=== PATIENT | female | born 1935 | race Caucasian/White ===

== ENCOUNTER 2018-09-08 16:28 | Emergency (ER) | payer MEDICARE, OTHER ==
--- OUTSIDE RECORDS SUMMARY | 2018-09-08 17:00 | XMS REPORT | Continuity of Care Document ---
:1935 External Reference #:[id number] Author Name Nan Morgan Care Team Providers Name Role Phone Felix Husain MD Primary Care Physician Unavailable Payers Type Date Identification Numbers Payment Provider Subscriber Policy Number: [id number] Medicare Sayra Ceja PayID: [id number] [address] [place] [address] Policy Number: [id number] [facility] Sayra Ceja Group Number: [id number] [address] PayID: [id number] [place] [address] Advance Directives Description No Information Available Problems Description No Information Family History Date Family Member(s) Problem(s) Comments Father due to Heart arrhythmia () Father Heart Disease Mother No Current Problems Mother due to Natural Causes () Mother Dementia Siblings 2 2 brothers, both younger One brother has sleep apnea Social History Type Date Description Comments Sex Unknown Marital Status 03/2014 Lives With Alone Occupation Retired Tobacco Use Start: Unknown Former smoker in college, quit 50 years ago ETOH Use Denies alcohol use Tobacco Use Start: Unknown Patient has never smoked Smoking Status Reviewed: 09/06/18 Patient has never smoked Exercise Exercises regularly small trampoline Type/Frequency daily Allergies, Adverse Reactions, Alerts Date Description Reaction Status Severity Comments 08/24/2010 Sulfa severe exhaustion, vomiting Active 01/25/2015 Dilaudid Active 07/06/2017 Hay Fever Active Medications Medication Date Status Form Strength Qnty SIG Indications Ordering Provider Oxygen 04/08/2018 Active Misc 1units please use R09.02 Sheila o2 at MD Chirag 2l/min at night I27.20 B12 Active 1000mg Im twice q Unknown month Melatonin Active Capsules 10mg 1 PO qd Unknown Ipratropium Active Solution 0.03% spray 2 Unknown Ipava sprays in each nostril two times daily as needed Calcium Active Tablets 333mg 1 by mouth Unknown every day Potassium Active Capsules 200mg 3 caps by Unknown mouth qd Probiotic Daily Active Capsules 1 by mouth Unknown every day Co Q10 03/26/2013 - Hx Capsules 100mg 1 po qd Other 01/24/2015 Ordering Provider Vitamin D 08/24/2010 - Hx Capsules 1000Unit 100 po qd Keith Thomas 01/24/2015 baltazar Rider M.D. Vitamin C 08/24/2010 - Hx Tablets 500mg 1 po qd Keith Thomas 09/04/2018 Price Adkins Forteo - Hx Solution 750mcg/3M use ad Unknown 03/21/2012 L directed Ambien - Hx Tablets 5mg 30t 1 po tablet Unknown 06/05/2017 abs at bedtime prn Calcium,MG, Zinc - Hx 500mg one po twice Unknown 07/29/2018 daily Multiple Vitamin - Hx Tablets 1 po qd Unknown 09/04/2018 Vitamin B Complex - Hx Capsules 1 po qd Unknown 03/26/2013 Vitamin K2 - Hx Capsules 100mcg 1 by mouth Unknown 09/04/2018 every day Cholestyramine - Hx Packet 4gm /4 packet Unknown 03/12/2016 once daily Extra Strength - Hx Capsules 500mg 2 tab po qd Unknown Acetaminophen 01/18/2016 as needed Eye Bright - Hx 1 daily Unknown 07/29/2018 Erythromycin - Hx Ointment 5mg/GM apply to Unknown 06/05/2017 bilateral eyelids every night at bedtime Artificial Tears - Hx Solution 0.1-0.3% 1 drop in Unknown 03/18/2018 left eye every 2 hours as needed Vitamin D - Hx daily Unknown 07/29/2018 Vitamin B1 - Hx 100mg daily Unknown 09/04/2018 Cranactin - Hx Tablets 400mg 1 by mouth Unknown 09/04/2018 every day Milk Thistle - Hx Capsules 600mg 1 cap by Unknown 09/04/2018 mouth every day Immunizations Description No Information Available Vital Signs Date Vital Result Comment 09/06/2018 10:07am Height 56 inches 4'8" Weight 88.00 lb Heart Rate 84 /min BP Systolic 106 mmHg BP Diastolic 60 mmHg Respiratory Rate 18 /min Body Temperature 98.8 F O2 % BldC Oximetry 98 % BMI (Body Mass Index) 19.7 kg/m2 07/30/2018 1:29pm Height 56 inches 4'8" Weight 86.00 lb Heart Rate 68 /min BP Systolic Sitting 132 mmHg BP Diastolic Sitting 90 mmHg Respiratory Rate 14 /min O2 % BldC Oximetry 96 % BMI (Body Mass Index) 19.3 kg/m2 Neck Circumference in inches 13.25 03/19/2018 1:24pm Height 56 inches 4'8" Weight 88.00 lb w/shoes Heart Rate 58 /min BP Systolic 126 mmHg lue sm cuff BP Diastolic 70 mmHg lue sm cuff BMI (Body Mass Index) 19.7 kg/m2 Ejection Fraction 60-65% echo 07/03/2017 07/06/2017 2:10pm Height 56 inches 4'8" Weight 94.50 lb w/ shoes Heart Rate 64 /min reg BP Systolic Sitting 120 mmHg Lue, reg cuff BP Diastolic Sitting 70 mmHg Lue, reg cuff Respiratory Rate 16 /min BMI (Body Mass Index) 21.2 kg/m2 Ejection Fraction 60-65% as of 07/04/17 echo 03/12/2017 2:06pm Height 56 inches 4'8" Weight 91.00 lb w/o shoes Heart Rate 58 /min BP Systolic Sitting 142 mmHg LA small adult cuff BP Diastolic Sitting 78 mmHg LA small adult cuff BMI (Body Mass Index) 20.4 kg/m2 Ejection Fraction 60% - 65% echo 02/15/15 01/19/2016 3:34pm Height 56 inches 4'8" Weight 94.25 lb with shoes Heart Rate 78 /min BP Systolic Sitting 124 mmHg LA, regular BP Diastolic Sitting 78 mmHg LA, regular BMI (Body Mass Index) 21.1 kg/m2 Ejection Fraction 60-65% echo 02/15/15 01/25/2015 1:51pm Height 56 inches 4'8" Weight 90.75 lb w/shoes Heart Rate 60 /min BP Systolic Sitting 130 mmHg LA sm cuff BP Diastolic Sitting 80 mmHg LA sm cuff Respiratory Rate 14 /min BMI (Body Mass Index) 20.3 kg/m2 03/26/2013 11:37am Weight 95.00 lb Heart Rate 52 /min BP Systolic 120 mmHg BP Diastolic 62 mmHg Respiratory Rate 16 /min 03/21/2012 11:13am Weight 96.00 lb Heart Rate 76 /min BP Systolic 120 mmHg BP Diastolic 80 mmHg Respiratory Rate 16 /min 04/13/2011 2:58pm Weight 96.00 lb Heart Rate 76 /min BP Systolic Sitting 100 mmHg BP Diastolic Sitting 60 mmHg 08/24/2010 9:42am Weight 100.25 lb Heart Rate 58 /min BP Systolic Sitting 128 mmHg BP Diastolic Sitting 64 mmHg BP Systolic Lying Down 100 mmHg BP Diastolic Lying Down 70 mmHg Results Test Date Facility Test Result H/L Range Note Laboratory test 05/14/2018 [facility] TSH 5.26 mcIU/mL N 0.34- 5.[address] ([place] [address] Stim [facility]) [phone] CBC W/Auto Diff 05/14/2018 [facility] White Blood 6.2 10^3/uL N 3.5-10.[address] [place] [address] [phone] Red Blood Count 3.72 10^6/uL Low 4.00-5.40 Hemoglobin 11.8 g/dL Low 12.0-16.0 Hematocrit 35 % N 35-47 Mean Corpuscular Volume 94 fL N 80-97 Mean Corpuscular Hemoglobin 32 pg High 27-31 Mean Corpuscular HGB Conc 34 g/dL N 31-36 Red Cell Distribution Width 14 % N 10.5-15 Platelet Count 178 10^3/uL N 150-450 Mean Platelet Volume 9.1 um3 N 7.4-10.4 Abs Neutrophils 3.6 10^3/uL N 1.5-7.7 Abs Lymphocytes 1.6 10^3/uL N 1.0-4.8 Abs Monocytes 0.7 10^3/uL N 0-0.8 Abs Eosinophils 0.2 10^3/uL N 0-0.6 Abs Basophils 0 10^3/uL N 0-0.2 Abs Nucleated RBC 0 10^3/uL Granulocyte % 58.4 % N 38-83 Lymphocyte % 25.4 % N 25-47 Monocyte % 11.9 % High 0-7 Eosinophil % 3.6 % N 0-6 Basophil % 0.7 % N 0-2 Nucleated Red Blood Cells % 0.1 CMP Panel 05/14/2018 [facility] Sodium 135 mmol/L N 135-[address] [place] [address] [phone] Potassium 4.4 mmol/L N 3.5-5.0 Chloride 97 mmol/L Low 101-111 Co2 Carbon Dioxide 28 mmol/L N 22-32 Anion Gap 10 mmol/L N 2-11 Calcium 9.9 mg/dL N 8.6-10.3 Albumin 3.8 g/dL N 3.2-5.2 Total Bilirubin 0.60 mg/dL N 0.2-1.0 Glucose 87 mg/dL N 70-100 Blood Urea Nitrogen 13 mg/dL N 6-24 Creatinine 0.89 mg/dL N 0.51-0.95 BUN/Creatinine Ratio 14.6 N 8-20 Total Protein 6.2 g/dL Low 6.4-8.9 Globulin 2.4 g/dL N 2-4 Albumin/Globulin Ratio 1.6 N 1-3 Alkaline Phosphatase 55 U/L N 34-104 Alt 11 U/L N 7-52 Ast 18 U/L N 13-39 Egfr Non- 60.4 >60 Egfr 73.1 >60 1 Laboratory test 05/14/2018 [facility] Erythrocyte Sed 15 mm/Hr N 0-[address] [place] [address] [phone] Laboratory test 06/02/2017 [facility] TSH (Thyroid 6.44 High 0.34-5.6 [address] Stim Horm) mcIU/mL 0 [place] [address] [phone] Comp Metabolic 06/02/2017 [facility] Sodium 131 Low 133-[address] mmol/[place] [address] [phone] Potassium 4.6 mmol/L N 3.5-5.0 Chloride 100 mmol/L Low 101-111 Co2 Carbon Dioxide 30 mmol/L N 22-32 Anion Gap 1 mmol/L Low 2-11 Glucose 86 mg/dL N 70-100 Blood Urea Nitrogen 10 mg/dL N 6-24 Creatinine 0.78 mg/dL N 0.51-0.95 BUN/Creatinine Ratio 12.8 N 8-20 Calcium 9.5 mg/dL N 8.6-10.3 Total Protein 6.4 g/dL N 6.4-8.9 Albumin 3.8 g/dL N 3.2-5.2 Globulin 2.6 g/dL N 2-4 Albumin/Globulin Ratio 1.5 N 1-3 Total Bilirubin 0.60 mg/dL N 0.2-1.0 Alkaline Phosphatase 72 U/L N 34-104 Alt 11 U/L N 7-52 Ast 18 U/L N 13-39 Egfr Non- 70.5 N >60 Egfr 90.7 N >60 3 CBC Auto Diff 06/02/2017 [facility] White Blood 6.4 10^3/uL N 3.5-10.[address] [place] [address] [phone] Red Blood Count 3.73 10^6/uL Low 4.0-5.4 Hemoglobin 11.7 g/dL Low 12.0-16.0 Hematocrit 34 % Low 35-47 Mean Corpuscular Volume 92 fL N 80-97 Mean Corpuscular Hemoglobin 31 pg N 27-31 Mean Corpuscular HGB Conc 34 g/dL N 31-36 Red Cell Distribution Width 15 % N 10.5-15 Platelet Count 222 10^3/uL N 150-450 Mean Platelet Volume 8 um3 N 7.4-10.4 Abs Neutrophils 3.9 10^3/uL N 1.5-7.7 Abs Lymphocytes 1.5 10^3/uL N 1.0-4.8 Abs Monocytes 0.6 10^3/uL N 0-0.8 Abs Eosinophils 0.3 10^3/uL N 0-0.6 Abs Basophils 0.1 10^3/uL N 0-0.2 Abs Nucleated RBC 0 10^3/uL N Granulocyte % 60.9 % N 38-83 Lymphocyte % 23.7 % Low 25-47 Monocyte % 9.3 % High 1-9 Eosinophil % 5.1 % N 0-6 Basophil % 1.0 % N 0-2 Nucleated Red Blood Cells % 0.1 N 1 Because ethnic data is not always readily available, this report includes an eGFR for both -Americans and non- Americans. The National Kidney Disease Education Program (NKDEP) does not endorse the use of the MDRD equation for patients that are not between the ages of 18 and 70, are , have extremes of body size, muscle mass, or nutritional status, or are non- or non-. According to the National Kidney Foundation, irrespective of diagnosis, the stage of the disease is based on the level of kidney function: Stage Description GFR(mL/min/1.73 m(2)) 1 Kidney damage with normal or decreased GFR 90 2 Kidney damage with mild decrease in GFR 60-89 3 Moderate decrease in GFR 30-59 4 Severe decrease in GFR 15-29 5 Kidney failure <15 (or dialysis) 2 Copy Result to: CINDA ZAPATA ([id number]) 3 Because ethnic data is not always readily available, this report includes an eGFR for both -Americans and non- Americans. The National Kidney Disease Education Program (NKDEP) does not endorse the use of the MDRD equation for patients that are not between the ages of 18 and 70, are , have extremes of body size, muscle mass, or nutritional status, or are non- or non-. According to the National Kidney Foundation, irrespective of diagnosis, the stage of the disease is based on the level of kidney function: Stage Description GFR(mL/min/1.73 m(2)) 1 Kidney damage with normal or decreased GFR 90 2 Kidney damage with mild decrease in GFR 60-89 3 Moderate decrease in GFR 30-59 4 Severe decrease in GFR 15-29 5 Kidney failure <15 (or dialysis) Procedures Date Code Description Status 04/25/2018 54459 Holter Monitor Review (24 hr)dr tijerina & maricel only Completed 04/22/2018 89880 ECG Monitor/Recording W/Visual Superimposition Scanning Completed 03/19/2018 18506 EKG Tracing & Interpretation Completed 07/06/2017 18646 EKG Tracing & Interpretation Completed 07/03/2017 63932 ECHO Transthoracic, Real-Time 2D With Doppler And Color Completed Flow 05/01/2017 37645 Holter Monitor Review (24 hr)dr review & interp only Completed 04/30/2017 98108 ECG Monitor/Recording W/Visual Superimposition Scanning Completed 03/12/2017 65953 EKG Tracing & Interpretation Completed 09/04/2016 80991 Pulmonary Function><Bronchodil Completed 01/19/2016 84133 EKG Tracing & Interpretation Completed 03/12/2015 49205 Holter Monitor Review (24 hr)dr review & interp only Completed 03/12/2015 81347 ECG Monitor/Recording W/Visual Superimposition Scanning Completed 03/08/2015 96373 ECG Monitor/Recording W/Visual Superimposition Scanning Completed 03/08/2015 86119 Holter Monitor Review (24 hr)dr review & interp only Completed 02/15/2015 79425 ECHO Transthoracic, Real-Time 2D With Doppler And Color Completed Flow 01/25/2015 97887 EKG Tracing & Interpretation Completed 01/22/2014 38921 Repair Hernia Inguinal > 5Yrs, Reducible Completed 03/26/2013 22362 EKG Tracing & Interpretation Completed 03/21/2012 40972 EKG Tracing & Interpretation Completed 01/15/2012 64866 ECHO Transthoracic, Real-Time 2D With Doppler And Color Completed Flow 04/13/2011 39199 EKG Tracing & Interpretation Completed 02/02/2011 33966 ECHO Transthoracic, Real-Time 2D With Doppler And Color Completed Flow 10/18/2010 75098 Treadmill Interp/Report Only Completed 10/18/2010 16541 Stress Test Supervsn W/Out I/R Completed 08/24/2010 31594 EKG Tracing & Interpretation Completed 06/08/2010 12444 ECHO Transthorasic Realtime 2D W Doppler & Color Flow Hosp Completed Encounters Type Date Location Provider Dx Diagnosis Office Visit 07/30/2018 [facility] Sheila Beard, J98.4 Other disorders 2:30p [facility] Scudding Inspector M41.9 Scoliosis, unspecified R09.02 Hypoxemia Office Visit 03/19/2018 1:40p [facility] Keith Thomas I49.5 Sick sinus Price Adkins syndrome I34.0 Nonrheumatic mitral (valve) insufficiency I87.2 Venous insufficiency (chronic) (peripheral) 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, thoracic region I49.3 Ventricular premature depolarization I27.20 Pulmonary hypertension, unspecified G47.9 Sleep disorder, unspecified Office Visit 07/06/2017 2:20p [facility] Keith Thomas I49.5 Sick sinus Price Adkins syndrome I34.0 Nonrheumatic mitral (valve) insufficiency I87.2 Venous insufficiency (chronic) (peripheral) R94.31 Abnormal electrocardiogram [ECG] [EKG] Office Visit 03/12/2017 1:40p [place] Keith Thomas M41.34 Thoracogenic Cardiology Price Adkins scoliosis, thoracic region I49.5 Sick sinus syndrome I34.0 Nonrheumatic mitral (valve) insufficiency E03.9 Hypothyroidism, unspecified Office Visit 01/19/2016 3:20p [place] [facility]41.[facility] Price Adkins scoliosis, thoracic region I27.0 Primary pulmonary hypertension I27.81 Cor pulmonale (chronic) Office Visit 01/25/2015 1:40p [facility] Keith Thomas 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 786.50 Pain Chest Unspec 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 Office Visit 03/26/2013 11:20a [facility] Keith Thomas 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 Office Visit 03/21/2012 11:00a [facility] Keith Thomas 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 424.0 Mitral Valve Disorder 737.30 Scoliosis & Kyphoscoliosis Idiopathic Office Visit 04/13/2011 3:00p [facility] Keith Thomas 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 Insert one per rectum today.Start MiraLAX todayPush fluidsPlease call us if you have any problems!M41.9 Scoliosis, unspecifiedComments:Buy a box of Dulcolax suppositories. Insert one per rectum today.Start MiraLAX todayPush fluidsPlease call us if you have any problems!
--- OUTSIDE RECORDS SUMMARY | 2018-09-08 17:00 | XMS REPORT | Continuity of Care Document ---
:1935 External Reference #:[id number] Author Name Hali Ruiz O.D. Address [address] [place] [address] Care Team Providers Name Role Phone Felix Husain M.D. Primary Care Physician Unavailable Payers Type Date Identification Numbers Payment Provider Subscriber Effective: 1998 Policy Number: [id number] Medicare - NGS Sayra Ceja PayID: [id number] [address] [place] [address] Policy Number: [id number] [employer] Ppo/Pos/Epo/Nap Sayra Ceja Group Number: [id number] [address] PayID: [id number] [place] [address] Advance Directives Description No Information Available Problems Date Description Provider Status Onset: Herpes simplex Active Onset: Constipation Active Onset: Postural scoliosis Active Onset: H/O: hay fever Active Onset: Osteoporosis Active Onset: Yersiniosis Active Onset: 07/26/2015 Epiphora due to insufficient drainage Hali Ruiz Active O.DPaul Onset: 07/26/2015 Presence of intraocular lens Bridgette Kenney O.Mike Onset: 12/20/2015 Angular blepharoconjunctivitis Bridgette Kenney O.DPaul Onset: 06/18/2017 Vitreous degeneration Bridgette Kenney O.Mike Onset: 06/18/2017 Tear film insufficiency Hali J. Stockwin, Active O.D. 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 Vitamin C / Active Capsules 500mg 2 tab by Unknown 0000 mouth every day Vitamin K2 / Active Capsules 100mcg Unknown 0000 Atrovent HFA / Active Aerosol 17mcg/Act as Needed Unknown 0000 B1 Natural / Active Tablets 250mg Unknown 0000 Calcium / Active Tablets 300-300mg Unknown Magnesium 750 0000 Tobradex 11/06/ Hx Ointment 0.3-0.1% 3.500g apply to Hali Fregoso 2017 - m all lids , 06/16/ at bedtime O.D. 2017 for 2 weeks Erythromycin 10/04/ Hx Ointment 5mg/GM 3.5uni Apply to Hali Fregoso 2016 - ts affected , 06/16/ lids 3-4x O.D. 2016 d Erythromycin 08/16/ Hx Ointment 5mg/GM 1Tube apply thin Hali Fregoso 2015 - strip to , 06/16/ all four O.D. 2016 eyelid margins x every night for 3 weeks Erythromycin 02/09/ Hx Ointment 5mg/GM 1Tubes apply thin Hali Fregoso 2015 - strip to , 08/15/ all four O.D. 2016 eyelid margins every night at bedtime x 2 weeks Tobradex 12/19/ Hx Ointment 0.3-0.1% 3.500g apply to H10.523 Hali Fregoso 2016 - m all lids , 08/15/ at bedtime O.D. 2016 for 2 weeks Refresh Optive 12/15/ Hx Solution 0.5-1-0.5% 1 drop Hali Bautista 2016 - both eyes Stockwin, Sensitive 06/16/ 4-5 times O.D. 2017 day Refresh Tears 07/25/ Hx Solution 0.5% as needed Hali Fregoso 2014 - Joseph, 12/18/ O.D. 2016 Lid Scrubs 07/25/ Hx once a day Hali Fregoso 2014 - Joseph, 06/16/ O.D. 2017 Warm Compresses 07/25/ Hx as needed Hali Fregoso 2014 - Joseph, 06/16/ O.D. 2016 Cholestyramine / Hx Packet 4gm Crepet, 0000 - Briana Stark.DPaul 2015 Zolpidem 00/ Hx Tablets 5mg Crepet, Tartrate - Briana M.DPaul 2015 Cyanocobalamin / Hx Solution 1000mcg/ML Crepet, 0000 - Briana Stark.Mike 2017 Vitamin D 00/00/ Hx Capsules 2000Unit Unknown - 2017 Calcium 600 /00/ Hx Tablets 600mg Unknown 0000 - 2017 Multi Vitamin 00/00/ Hx Tablets Unknown Daily - 2017 Valacyclovir HCL 00/ Hx Tablets 500mg Unknown 0000 - 2015 Zaditor 00/ Hx Solution 0.025% 1 drop Hali Fregoso 0000 - both eyes Joseph, 06/16/ daily O.D. 2017 Potassium & 00/00/ Hx Capsules 250-250mg Unknown Magnesium 0000 - Aspartat 2017 Eye-Vites 00/00/ Hx Tablets Unknown 0000 - 2017 Immunizations Description No Information Available Vital Signs Description No Information Available Results Description No Information Available Procedures Date Code Description Status 06/18/2017 68290 Est Patient Comprehensive Exam Completed 08/16/2016 53642 Determination Of Refractive State Completed 08/16/2016 43450 Est Patient Comprehensive Exam Completed 12/20/2015 99335 Est Patient Intermediate Exam Completed 07/26/2015 64757 Determination Of Refractive State Completed 07/26/2015 36222 Est Patient Comprehensive Exam Completed 09/18/2013 55620 Determination Of Refractive State Completed 09/18/2013 73231 Est Patient Comprehensive Exam Completed 09/18/2013 201 Refit - No Change In Fit Completed 08/21/2012 34702 Extracapsular Cataract Extraction W/Intraocular Lens Completed 08/13/2012 12034 Ophthalmic Biometry Completed 05/28/2012 46539 Est Patient Comprehensive Exam Completed 03/22/2012 201 Refit - No Change In Fit Completed 05/25/2011 22049 Est Patient Comprehensive Exam Completed 05/03/2011 55041 Est Patient Intermediate Exam Completed 12/23/2010 87613 Scanning Computerized Opthalmic Diagnostic Posterior Seg Completed Retina 12/23/2010 73973 Est Patient Comprehensive Exam Completed 12/23/2010 201 Refit - No Change In Fit Completed 07/15/2010 42556 Est Patient Intermediate Exam Completed 12/29/2009 94792 Determination Of Refractive State Completed 12/17/2009 58672 Est Patient Intermediate Exam Completed 06/30/2009 201 Refit - No Change In Fit Completed 06/30/2009 12058 Est Patient Comprehensive Exam Completed 04/09/2009 83123 Est Patient Intermediate Exam Completed 05/08/2008 67056 Determination Of Refractive State Completed 05/08/2008 06484 Est Patient Intermediate Exam Completed 05/08/2008 201 Refit - No Change In Fit Completed 02/17/2008 35080 Est Patient Intermediate Exam Completed 01/30/2008 81047 Est Patient Comprehensive Exam Completed 03/18/2007 201 Refit - No Change In Fit Completed 03/06/2007 33499 Est Patient Comprehensive Exam Completed 12/29/2005 34880 Est Patient Intermediate Exam Completed 09/07/2005 203 Refit Soft Toric/Monovision Completed 08/16/2005 02566 Extracapsular Cataract Extraction W/Intraocular Lens Completed 08/08/2005 48146 Unlisted Procedure, Ophthalmological Completed 08/08/2005 41202 Ophthalmic Biometry Completed 07/25/2005 35208 Cancelled Appointment Completed 07/25/2005 48991 Est Patient Comprehensive Exam Completed 03/28/2005 22240 Determination Of Refractive State Completed 03/28/2005 05327 Est Patient Comprehensive Exam Completed 05/12/2004 18953 Determination Of Refractive State Completed 05/12/2004 18225 Est Patient Comprehensive Exam Completed Encounters Type Date Location Provider Dx Diagnosis Office Visit 07/03/2014 Hali Salinas 373.00 Blepharitis Unspec 2:10p bessie BRAUN O.D. Office Visit 04/17/2013 Hali Salinas 375.15 Dry Eyes (Sicca 10:20a bessie BRAUN O.D. Syndrome) Office Visit 11/25/2012 Hali Salinas 375.20 Epiphora 3:10p bessie BRAUN O.D. Unspecified as To Cause Office Visit 11/11/2012 Hali Salinas 375.20 Epiphora 3:40p bessie BRAUN O.D. Unspecified as To Cause 375.15 Dry Eyes (Sicca Syndrome) Office Visit 08/13/2012 11:00a Jose A Salinas 366.16 Senile Nuclear bessie BRAUN M.D. Sclerosis / Cataract 366.16 Senile Nuclear Sclerosis / Cataract Office Visit 07/18/2010 7:15p Jose A Rosa 370.20 Superficial MD Theron, bessie Olvera O.D. 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 Primary Office Visit 12/29/2009 1:30p Jose A Fregoso 364.01 Iridocyclshaquille Crump MD, bessie Ruiz O.D. Primary Office Visit 12/20/2009 10:20a Jose A Fregoso 364.01 Iridocyclshaquille Crump MD, bessie Ruiz O.D. Primary Office Visit 09/02/2008 3:45p Jose A Waterman 930.0 Corneal Foreign Body MD Theron, bessie Etienne M.D. Office Visit 02/24/2008 3:00p Jose A Fregoso 370.00 Corneal Ulcer MD Theron, bessie Ruiz O.D. (Infectious) Office Visit 02/20/2008 3:00p Jose A Fregoso 371.00 Corneal Opacity MD Theron, bessie Ruiz O.D. Unspec Office Visit 08/08/2005 11:00a Jose A Fregoso V72.83 Examination MD Theron, bessie Crump M.D. Preoperative Other Spec 366.16 Senile Nuclear Sclerosis / Cataract Office Visit 06/14/2005 2:30p Jose A Etienne, 366.14 Posterior MD Theron, bessie Melgoza. Subcapsular Polar Cataract Senile Plan of Treatment 08/19/2018 - Hali Ruiz O.D.H04.123 Dry eye syndrome of bilateral lacrimal glandsComments:Smoking can increase the risk of developing or worsening any eye related disease, as well as affect your overall health. If you are a smoker, we strongly recommend that you quit.If you are not a smoker, we strongly recommend that you do not start. CONTINUE THERATEARS BOTH EYES NEEDEDFollow up:1 Year Follow Up You can expect to have your eyes dilated at your next visit. If Dr. Ruiz orders any additional testing, it may require extra time. We recommend that you bring sunglasses, as dilation drops often make you light sensitive until they wear off. We always recommend you bring someone to drive you home if you are uncomfortable driving with your eyes dilated. If you have any questions before your next visit, feel free to call our office at .[phone] Vitreous degeneration, bilateralComments: You have a Posterior Vitreous Detachment. Please read the pamphlet that was given to you. If you have any changes in your floaters or flashing lights, please contact this office.Z96.1 Presence of intraocular lensComments:The artificial lens implants in both eyes appear to be stable at this time.
[2018-09-08 18:14] LABS: ABS Basophils 0 10^3/ul (0-0.2); ABS Eosinophils 0.1 10^3/ul (0-0.6); ABS Lymphocytes 1.2 10^3/ul (1.0-4.8); ABS Monocytes 0.8 10^3/ul (0-0.8); ABS Neutrophils 5.3 10^3/ul (1.5-7.7); ABS Nucleated RBC 0 10^3/ul; Eosinophil % 1.4 %; Hematocrit 37 % (35-47); Hemoglobin 12.6 g/dl (12.0-16.0); Lymphocyte % 16.5 %; Mean Corpuscular HGB Conc 34 g/dl (31-36); Mean Corpuscular Hemoglobin 31 pg (27-31); Mean Corpuscular Volume 92 fL (80-97); Mean Platelet Volume 8.5 fL (7.4-10.4); Nucleated Red Blood Cells % 0; Platelet Count 195 10^3/ul (150-450); Red Blood Count 4.08 10^6/ul (4.00-5.40); Red Cell Distribution Width 14 % (10.5-15); White Blood Count 7.5 10^3/ul (3.5-10.8)
[2018-09-08 18:30] LABS: EGFR Non-African American 56.7 (>60)
[2018-09-08] MEDS ORDERED: Iodixanol* (CONTRAST) 320 MG/ML 100 ML SDV IV ONE (19:33)
[2018-09-08] MEDS ORDERED: Sodium Phosphate ADULT ENEMA* 118 ml bottle PR ONE (23:00)
--- NOTE | 2018-09-09 00:28 | ED ---
Abdominal Pain/Female - HPI Summary HPI Summary: Patient complains of no bowel movements this week. Patient saw GI 3 days ago and states she has tried everything but an enema. Patient taking MiraLAX and has tried Dulcolax suppositories 2 three days ago with no change in BM. Denies abdominal pain, fever, urine symptoms, vaginal symptoms, N/V/D, cough, sore throat, CP, SOB. PCP advised to come to the ED for imaging. Patient states she feels the urge to go but has minimal production. Medical history is pernicious anemia, scoliosis. Abdominal surgical history is hernia. - History of Current Complaint Chief Complaint: EDAbdPain Stated Complaint: CONSTIPATION X4WKS/NO BM FOR 9DAYS Time Seen by Provider: 09/08/18 17:39 Hx Obtained From: Patient, Family/Booster Station Operator Onset/Duration: Gradual Onset Timing: Constant Severity Currently: None Pain Intensity: 0 Pain Scale Used: 0-10 Numeric Radiates: No Associated Signs and Symptoms: Positive: Constipation Allergies/Adverse Reactions: Allergies Allergy/AdvReac Type Severity Reaction Status Date / Time hydrocodone Allergy Nausea Verified 09/08/18 18:05 hydromorphone [From Dilaudid] Allergy Nausea Verified 09/08/18 18:05 sulfabenzamide Allergy Vomiting Verified 09/08/18 18:05 sulfamethoxazole Allergy Hallucinati Verified 09/08/18 18:05 [From Septra] ons trimethoprim [From Septra] Allergy Hallucinati Verified 09/08/18 18:05 ons ENVIRONMENTAL/.SEASONAL Allergy SNEEZING, Uncoded 09/08/18 18:05 HAYFEVER RUNNY NOSE, CONGESTION SULFA Allergy Vomiting Uncoded 09/08/18 18:05 Home Medications: Home Medications Cannabidiol (Cbd) Extract 1 applic TOPICAL DAILY PRN 09/08/18 [History Confirmed 09/09/18] Melatonin 5 mg Tablet 10 mg PO DAILY 09/08/18 [History Confirmed 09/09/18] PMH/Surg Hx/FS Hx/Imm Hx Endocrine/Hematology History: Reports: Hx Anemia - PERNICIOUS ANEMIA Denies: Hx Anticoagulant Therapy, Hx Diabetes, Hx Thyroid Disease Cardiovascular History: Reports: 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 MABRY Respiratory History: Denies: Hx Asthma, Hx Chronic Obstructive Pulmonary Disease (COPD) GI History: Reports: Other GI Disorders - DIFFICULTY SWALLOWING SOME PILLS Denies: Hx Ulcer History: Denies: Hx Renal Disease Comment Only: Other Problems/Disorders - HX OF UTI'S, NONE NOW Musculoskeletal History: Reports: Hx Osteoporosis, Other Musculoskeletal History - RIGHT SIDE DIFF WITH RANGE OF MOTION Denies: Hx Rheumatoid Arthritis Sensory History: Reports: Hx Cataracts, Hx Contacts or Glasses - GLASSES Denies: Hx Hearing Aid Opthamlomology History: Reports: Hx Cataracts, Hx Contacts or Glasses - GLASSES Neurological History: Reports: 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 D&C. HERNIA . Tonsillectomy Hx Anesthesia Reactions: No Infectious Disease History: No Infectious Disease History: Reports: Hx Clostridium Difficile Denies: Hx Hepatitis, Hx Human Immunodeficiency Virus (HIV), History Other Infectious Disease, Traveled Outside the in Last 30 Days - Family History Known Family History: Positive: Unknown - Social History Alcohol Use: None Alcohol Amount: wine 3 times per week Substance Use Type: Reports: None Smoking Status (MU): Never Smoked Tobacco Have You Smoked in the Last Year: No Review of Systems Constitutional: Negative Eyes: Negative ENT: Negative Cardiovascular: Negative Respiratory: Negative Positive: Other Genitourinary: Negative Musculoskeletal: Negative Skin: Negative Neurological: Negative Psychological: Normal All Other Systems Reviewed And Are Negative: Yes Physical Exam Triage Information Reviewed: Yes Vital Signs On Initial Exam: Initial Vitals Temp Pulse Resp BP Pulse Ox 98.5 F 70 14 116/69 95 09/08/18 16:39 09/08/18 16:39 09/08/18 16:39 09/08/18 16:39 09/08/18 16:39 Vital Signs Reviewed: Yes Appearance: Positive: Well-Appearing Skin: Positive: Warm Head/Face: Positive: Normal Head/Face Inspection Eyes: Positive: Normal Neck: Positive: Supple Respiratory/Lung Sounds: Positive: Clear to Auscultation Cardiovascular: Positive: Normal Abdomen Description: Positive: Nontender Musculoskeletal: Positive: Normal Neurological: Positive: Normal Psychiatric: Positive: Normal AVPU Assessment: Alert - Jt Coma Scale Best Eye Response: 4 - Spontaneous Best Motor Response: 6 - Obeys Commands Best Verbal Response: 5 - Oriented Coma Scale Total: 15 Diagnostics - Vital Signs Vital Signs Temp Pulse Resp BP Pulse Ox 09/09/18 00:16 89 22 138/77 89 18 00:10 16 135/78 09/09/18 00:08 6 09/08/18 23:00 78 17 92 09/08/18 22:45 84 24 124/75 93 09/08/18 22:19 83 29 96 09/08/18 22:16 76 21 125/76 93 09/08/18 22:00 75 16 96 09/08/18 21:47 16 144/87 09/08/18 21:16 22 111/60 09/08/18 21:00 19 09/08/18 20:45 20 132/80 09/08/18 20:16 21 139/88 09/08/18 20:00 23 09/08/18 19:15 72 21 117/63 93 09/08/18 19:00 69 29 94 09/08/18 18:46 67 26 111/66 94 09/08/18 18:16 69 18 131/82 93 09/08/18 18:00 72 18 95 09/08/18 17:46 66 14 138/76 96 09/08/18 17:45 60 14 96 09/08/18 16:39 98.5 F 70 14 116/69 95 - Laboratory Lab Results: Lab Results 09/08/18 09/08/18 Range/Units 18:00 18:00 WBC 7.5 (3.5-10.8) 10^3/ul RBC 4.08 (4.00-5.40) 10^6/ul Hgb 12.6 (12.0-16.0) g/dl Hct 37 (35-47) % MCV 92 (80-97) fL MCH 31 (27-31) pg MCHC 34 (31-36) g/dl RDW 14 (10.5-15) % Plt Count 195 (150-450) 10^3/ul MPV 8.5 (7.4-10.4) fL Neut % (Auto) 70.6 % Lymph % (Auto) 16.5 % [place] % (Auto) 10.9 % Eos % (Auto) 1.4 % Baso % (Auto) 0.6 % Absolute Neuts (auto) 5.3 (1.5-7.7) 10^3/ul Absolute Lymphs (auto) 1.2 (1.0-4.8) 10^3/ul Absolute Monos (auto) 0.8 (0-0.8) 10^3/ul Absolute Eos (auto) 0.1 (0-0.6) 10^3/ul Absolute Basos (auto) 0 (0-0.2) 10^3/ul Absolute Nucleated RBC 0 10^3/ul Nucleated RBC % 0 Sodium 129 L (135-145) mmol/L Potassium 4.4 (3.5-5.0) mmol/L Chloride 93 L (101-111) mmol/L Carbon Dioxide 30 (22-32) mmol/L Anion Gap 6 (2-11) mmol/L BUN 14 (6-24) mg/dL Creatinine 0.94 (0.51-0.95) mg/dL Est GFR ( Amer) 68.6 (>60) Est GFR (Non-Af Amer) 56.7 (>60) BUN/Creatinine Ratio 14.9 (8-20) Glucose 94 (70-100) mg/dL Calcium 9.7 (8.6-10.3) mg/dL Total Bilirubin 0.80 (0.2-1.0) mg/dL AST 17 (13-39) U/L ALT 13 (7-52) U/L Alkaline Phosphatase 55 (34-104) U/L C-Reactive Protein 1.31 (<8.01) mg/L Total Protein 6.4 (6.4-8.9) g/dL Albumin 3.8 (3.2-5.2) g/dL Globulin 2.6 (2-4) g/dL Albumin/Globulin Ratio 1.5 (1-3) Lipase < 10 L (11.0-82.0) U/L Result Diagrams: 09/08/18 18:00 09/08/18 18:00 Lab Statement: Any lab studies that have been ordered have been reviewed, and results considered in the medical decision making process. Abdominal Pain Fem Course/Dx - Course Course Of Treatment: Patient complains of no bowel movements this week. Patient saw GI 3 days ago and states she has tried everything but an enema. Patient taking MiraLAX and has tried Dulcolax suppositories 2 three days ago with no change in BM. Denies abdominal pain, fever, urine symptoms, vaginal symptoms, N/V/D, cough, sore throat, CP, SOB. PCP advised to come to the ED for imaging. Patient states she feels the urge to go but has minimal production. Medical history is pernicious anemia, scoliosis. Abdominal surgical history is hernia. Physical exam unremarkable. Vital signs within normal limits and stable. Labs unremarkable. X-ray positive for constipation. CT abdomen and pelvis positive for constipation and possible stercoral colitis secondary to constipation. Patient given Fleet Enema with large amount of stool production. Patient discharged home and advised to follow-up with primary care for management of constipation. Patient and daughter understand and appropriate plan. Patient states she feels much better after enema. - Diagnoses Provider Diagnoses: Constipation Discharge - Sign-Out/Discharge Documenting (check all that apply): Patient Departure - Discharge Plan Condition: Stable Disposition: HOME Patient Education Materials: Constipation (ED) Referrals: Felix Husain MD [Primary Care Provider] - Additional Instructions: Follow-up with primary care on management of constipation. Return to the ED for any new or worsening symptoms - Billing Disposition and Condition Condition: STABLE Disposition: Home
[2018-09-09 01:37] VITALS: BP 131/83
== END 2018-09-09 01:40 | disposition home or self-care (01) ==
LOC: ED 16:28
DX: K59.00 Constipation, unspecified (principal); Z88.5 Allergy status to narcotic agent; Z88.2 Allergy status to sulfonamides; Z88.8 Allergy status to other drugs, medicaments and biological substances
CPT/HCPCS: 36415; 74018; 74177; 80053; 83690; 85025; 86140; 99285; A9270-GY; Q9967

== ENCOUNTER 2018-09-13 18:10 | Emergency (ER) | payer MEDICARE, OTHER ==
--- NOTE | 2018-09-13 19:59 | ED ---
Altered Mental Status - HPI Summary HPI Summary: Patient is a 82 y/o F presenting to ED with complaints of confusion over the past few days. She was at [facility] for constipation five days ago, for which she received an enema. Patient had reported relief in Sx and was discharged to home. Since then, daughter reports that patient has been experiencing increased confusion over the past few days. She states that patient had several episodes of confusion on how to dial/use a phone. Patient endorses this. Dr. Husain was contacted and advised patient to come to ED to rule out possible infection/ severe dehydration. Patient reports that recently she has been having no difficulty with bowel movements/urination. However, she states that she has been experiencing decreased PO fluid intake due to decreased thirst. She denies decreased appetite. Pain is denied. PMHx of neuropathy is endorsed. Patient is alert and oriented x3 in the room. On triage, pain is denied, nothing is noted to aggravate/alleviate Sx. Home medications and allergies are reviewed. - History Of Current Complaint Chief Complaint: EDGeneral Stated Complaint: BLOODWORK Hx Obtained From: Patient, Family/Staff [employer] Officer - daughter Onset/Duration: Resolved - patient alert and oriented x3 in the room Timing: Intermittent, Lasting Days - past few days Severity Currently: None - pain denied Character: Confusion Aggravating Factor(s): Nothing Alleviating Factor(s): Nothing Associated Signs And Symptoms: Positive: Negative - Allergies/Home Medications Allergies/Adverse Reactions: Allergies Allergy/AdvReac Type Severity Reaction Status Date / Time hydrocodone Allergy Nausea Verified 09/08/18 18:05 hydromorphone [From Dilaudid] Allergy Nausea Verified 09/08/18 18:05 sulfabenzamide Allergy Vomiting Verified 09/08/18 18:05 sulfamethoxazole Allergy Hallucinati Verified 09/08/18 18:05 [From Septra] ons trimethoprim [From Septra] Allergy Hallucinati Verified 09/08/18 18:05 ons ENVIRONMENTAL/.SEASONAL Allergy SNEEZING, Uncoded 09/08/18 18:05 HAYFEVER RUNNY NOSE, CONGESTION SULFA Allergy Vomiting Uncoded 09/08/18 18:05 PMH/Surg Hx/FS Hx/Imm Hx Endocrine/Hematology History: Reports: Hx Anemia - PERNICIOUS ANEMIA Denies: Hx Anticoagulant Therapy, Hx Diabetes, Hx Thyroid Disease Cardiovascular History: Reports: 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 Respiratory History: Denies: Hx Asthma, Hx Chronic Obstructive Pulmonary Disease (COPD) GI History: Reports: Other GI Disorders - DIFFICULTY SWALLOWING SOME PILLS Denies: Hx Ulcer History: Denies: Hx Renal Disease Comment Only: Other Problems/Disorders - HX OF UTI'S, NONE NOW Musculoskeletal History: Reports: Hx Osteoporosis, Other Musculoskeletal History - RIGHT SIDE DIFF WITH RANGE OF MOTION Denies: Hx Rheumatoid Arthritis Sensory History: Reports: Hx Cataracts, Hx Contacts or Glasses - GLASSES Denies: Hx Hearing Aid Opthamlomology History: Reports: Hx Cataracts, Hx Contacts or Glasses - GLASSES Neurological History: Reports: 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 D&C. HERNIA . Tonsillectomy Hx Anesthesia Reactions: No Infectious Disease History: No Infectious Disease History: Reports: Hx Clostridium Difficile Denies: Hx Hepatitis, Hx Human Immunodeficiency Virus (HIV), History Other Infectious Disease, Traveled Outside the [place] in Last 30 Days - Family History Known Family History: Positive: Diabetes - brother Negative: Hypertension - Social History Alcohol Use: None Alcohol Amount: wine 3 times per week Substance Use Type: Reports: None Smoking Status (MU): Never Smoked Tobacco Have You Smoked in the Last Year: No Review of Systems Positive: Other - POSITIVE - DECREASED THIRST/PO FLUID INTAKE Positive: Other - NEGATIVE - DECREASED APPETITE Positive: no symptoms reported - genitourinary Psychological: Other - POSITIVE - EPISODES OF CONFUSION All Other Systems Reviewed And Are Negative: Yes Physical Exam - Summary Physical Exam Summary: VITAL SIGNS: Reviewed. GENERAL: Patient is a frail and tiny female who is lying comfortable in the stretcher. Patient is not in any acute respiratory distress. HEAD AND FACE: No signs of trauma. No ecchymosis, hematomas or skull depressions. No sinus tenderness. EYES: PERRLA, EOMI x 2, No injected conjunctiva, no nystagmus. EARS: Hearing grossly intact. Ear canals and tympanic membranes are within normal limits. MOUTH: Oropharynx within normal limits. NECK: Supple, trachea is midline, no adenopathy, no JVD, no carotid bruit, no c- spine tenderness, neck with full ROM. CHEST: Symmetric, no tenderness at palpation LUNGS: Clear to auscultation bilaterally. No wheezing or crackles. CVS: Regular rate and rhythm, S1 and S2 present, no murmurs or gallops appreciated. ABDOMEN: Soft, non-tender. Abdomen is distended. No rebound no guarding, and no masses palpated. Bowel sounds are hyperactive. EXTREMITIES: FROM in all major joints, no edema, no cyanosis or clubbing. NEURO: Alert and oriented x 3. No acute neurological deficits. Speech is normal and follows commands. SKIN: Dry and warm Triage Information Reviewed: Yes Vital Signs On Initial Exam: Initial Vitals Temp Pulse Resp BP Pulse Ox 97.7 F 64 18 150/68 98 09/13/18 18:18 12 18:18 09/13/18 18:18 09/13/18 18:18 09/13/18 18:18 Vital Signs Reviewed: Yes Diagnostics - Vital Signs Vital Signs Temp Pulse Resp BP Pulse Ox 09/13/18 18:18 97.7 F 64 18 150/68 98 - Laboratory Result Diagrams: 09/13/18 20:21 09/13/18 20:21 Lab Statement: Any lab studies that have been ordered have been reviewed, and results considered in the medical decision making process. Re-Evaluation - Re-Evaluation First Eval Re-Evaluation Time: 00:50 Comment: Results of labs and tests were discussed with patient and patients daughter. Patient to be discharged with Levofloxacin prescription. They are agreeable with discharge. Altered Mental Statu Course/Dx - Course Course Of Treatment: Patient is a 82 y/o F presenting to ED with complaints of confusion over the past few days. She was at [facility] for constipation five days ago , for which she received an enema. Patient had reported relief in Sx and was discharged to home. Since then, daughter reports that patient has been experiencing increased confusion over the past few days. She states that patient had several episodes of confusion on how to dial/use a phone. Patient endorses this. Dr. Husain was contacted and advised patient to come to ED to rule out possible infection/severe dehydration. Patient reports that recently she has been having no difficulty with bowel movements/urination. However, she states that she has been experiencing decreased PO fluid intake due to decreased thirst. She denies decreased appetite. Pain is denied. PMHx of neuropathy is endorsed. Patient is alert and oriented x3 in the room. Abdomen is distended, hyperactive bowel sounds are noted. Labs showed WBC 6.1, RBC 3.76 , Hgb 11.5, sodium 133, BUN/creatinine ratio 23.2, CRP < 1, total protein 5.9. UA showed cloudy urine, 1+ blood, 3+ leukocyte esterase, WBC, 1+ RBC, squamous epith cells present, 1+ bacteria. During ED course, patient received Levaquin 500 mg PO ED ONCE. Results of labs and tests were discussed with patient and patients daughter. Patient to be discharged with Levofloxacin prescription. They are agreeable with discharge. - Diagnoses Provider Diagnoses: UTI (urinary tract infection) Discharge - Sign-Out/Discharge Documenting (check all that apply): Patient Departure - discharge - Discharge Plan Condition: Stable Disposition: HOME Prescriptions: Levofloxacin TAB* [Levaquin TAB*] 250 mg PO DAILY #7 tab Patient Education Materials: Urinary Tract Infection in Women (ED) Referrals: Felix Husain MD [Primary Care Provider] - 2 Days Additional Instructions: RETURN TO THE EMERGENCY DEPARTMENT FOR CHANGING OR WORSENING SYMPTOMS. FOLLOW UP WITH PRIMARY CARE PHYSICIAN IN 1-2 DAYS. - Attestation Statements Document Initiated by Scribe: Yes Documenting Scribe: ELVIA CARO Provider For Whom Carmelita is Documenting (Include Credential): UNA HIGGINS MD Scribe Attestation: ELVIA Michaels , scribed for UNA HIGGINS MD on 09/14/18 at 0131. Status of Scribe Document: Ready
[2018-09-13 20:48] LABS: ABS Basophils 0 10^3/ul (0-0.2); ABS Eosinophils 0.2 10^3/ul (0-0.6); ABS Lymphocytes 1.5 10^3/ul (1.0-4.8); ABS Monocytes 0.8 10^3/ul (0-0.8); ABS Neutrophils 3.5 10^3/ul (1.5-7.7); ABS Nucleated RBC 0 10^3/ul; Eosinophil % 3.7 %; Hematocrit 36 % (35-47); Hemoglobin 11.5 g/dl (12.0-16.0); Lymphocyte % 25.1 %; Mean Corpuscular HGB Conc 32 g/dl (31-36); Mean Corpuscular Hemoglobin 31 pg (27-31); Mean Corpuscular Volume 95 fL (80-97); Mean Platelet Volume 8.4 fL (7.4-10.4); Nucleated Red Blood Cells % 0.1; Platelet Count 173 10^3/ul (150-450); Red Blood Count 3.76 10^6/ul (4.00-5.40); Red Cell Distribution Width 15 % (10.5-15); White Blood Count 6.1 10^3/ul (3.5-10.8)
[2018-09-13 20:51] LABS: EGFR Non-African American 66.4 (>60)
[2018-09-14 00:46] LABS: Urine Appearance Cloudy; Urine Blood 1+ (Negative); Urine Color Yellow; Urine Ketones Negative (Negative); Urine Protein Negative (Negative); Urine Red Blood Cell 1+(3-5/hpf) (Absent); Urine Specific Gravity 1.009 (1.010-1.030); Urine Urobilinogen Negative (Negative); Urine White Blood Cell 3+(>20/hpf) (Absent)
[2018-09-14] MEDS ORDERED: Levofloxacin TAB* 500 MG PO ONE (00:54)
[2018-09-14] MEDS ORDERED: Levofloxacin TAB* 500 MG ONE (01:02)
[2018-09-14] MEDS ORDERED: oxyCODONE/Acetamin 5/325 MG* TAB PO ONE (01:20)
[2018-09-14 01:48] VITALS: BP 121/63
== END 2018-09-14 02:02 | disposition home or self-care (01) ==
LOC: ED 18:10
DX: N39.0 Urinary tract infection, site not specified (principal); Z88.2 Allergy status to sulfonamides
CPT/HCPCS: 36415; 80053; 81003; 81015; 83735; 85025; 86140; 87086; 99282

== ENCOUNTER 2018-09-26 15:32 | Emergency (ER) | payer MEDICARE, OTHER ==
--- NOTE | 2018-09-26 16:42 | ED ---
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 She rates her pain as 0/10. Her consistency of her bowel movements has reportedly been OK, but she has had trouble pushing them out. She has a Hx of severe scoliosis and nerve damage and is requesting an MRI. She was referred to the ED by Dr. Wolf Starting a few days ago she had trouble going to the bathroom by herself and trouble moving due to general weakness. - History of Current Complaint Chief Complaint: EDAbdPain Time Seen by Provider: 09/26/18 15:43 Stated Complaint: URINARY/BOWEL Hx Obtained From: Patient, Family/Pelt Inspector Onset/Duration: Started Weeks Ago, Still Present Timing: Constant, Lasting Weeks Severity: Mild Current Severity: Mild Pain Intensity: 0 Location of Pain: Diffuse Associated Signs and Symptoms: Positive: Weakness Aggravating Factor(s): Nothing Alleviating Factor(s): Nothing - Allergy/Home Medications Allergies/Adverse Reactions: Allergies Allergy/AdvReac Type Severity Reaction Status Date / Time hydrocodone Allergy Nausea Verified 09/26/18 15:37 hydromorphone [From Dilaudid] Allergy Nausea Verified 09/26/18 15:37 sulfabenzamide Allergy Vomiting Verified 09/26/18 15:37 sulfamethoxazole Allergy Hallucinati Verified 09/26/18 15:37 [From ] ons trimethoprim [From ] Allergy Hallucinati Verified 09/26/18 15:37 ons ENVIRONMENTAL/.SEASONAL Allergy SNEEZING, Uncoded 09/26/18 15:37 HAYFEVER RUNNY NOSE, CONGESTION SULFA Allergy Vomiting Uncoded 09/26/18 15:37 Home Medications: Home Medications Cyanocobalamin (Vitamin B-12) [Vitamin B-12] 1,000 mcg SL MOWEFR 09/26/18 [ History Confirmed 09/26/18] Levothyroxine TAB* [Synthroid TAB*] 25 mcg PO DAILY 09/26/18 [History Confirmed 09/26/18] PMH/Surg Hx/FS Hx/Imm Hx Endocrine/Hematology History: Reports: Hx Anemia - PERNICIOUS ANEMIA Denies: Hx Anticoagulant Therapy, Hx Diabetes, Hx Thyroid Disease Cardiovascular History: Reports: 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 Respiratory History: Denies: Hx Asthma, Hx Chronic Obstructive Pulmonary Disease (COPD) GI History: Reports: Other GI Disorders - DIFFICULTY SWALLOWING SOME PILLS Denies: Hx Ulcer History: Denies: Hx Renal Disease Comment Only: Other Problems/Disorders - HX OF UTI'S, NONE NOW Musculoskeletal History: Reports: Hx Osteoporosis, Other Musculoskeletal History - RIGHT SIDE DIFF WITH RANGE OF MOTION Denies: Hx Rheumatoid Arthritis Sensory History: Reports: Hx Cataracts, Hx Contacts or Glasses - GLASSES Denies: Hx Hearing Aid Opthamlomology History: Reports: Hx Cataracts, Hx Contacts or Glasses - GLASSES Neurological History: Reports: 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 D&C. HERNIA . Tonsillectomy Hx Anesthesia Reactions: No Infectious Disease History: Yes Infectious Disease History: Reports: Hx Clostridium Difficile Denies: Hx Hepatitis, Hx Human Immunodeficiency Virus (HIV), History Other Infectious Disease, Traveled Outside the [place] in Last 30 Days - Family History Known Family History: Positive: Diabetes - brother Negative: Hypertension - Social History Alcohol Use: None Alcohol Amount: wine 3 times per week Substance Use Type: Reports: None Smoking Status (MU): Never Smoked Tobacco Have You Smoked in the Last Year: No Review of Systems Positive: incontinence - urinary and bowel Positive: Weakness All Other Systems Reviewed And Are Negative: Yes Physical Exam - Summary Physical Exam Summary: Appearance: The patient is well-nourished in no acute distress and in no acute pain. Skin: The skin is warm and dry and skin color reflects adequate perfusion. HEENT: The head is normocephalic and atraumatic. The pupils are equal and reactive. The conjunctivae are clear and without drainage. Nares are patent and without drainage. Mouth reveals moist mucous membranes and the throat is without erythema and exudate. The external ears are intact. The ear canals are patent and without drainage. The tympanic membranes are intact. Neck: The neck is supple with full range of motion and non-tender. There are no carotid bruits. There is no neck vein distension. Respiratory: Chest is non-tender. Lungs are clear to auscultation and breath sounds are symmetrical and equal. Cardiovascular: Heart is regular rate and rhythm. There is no murmur or rub auscultated. There is no peripheral edema and pulses are symmetrical and equal. Abdomen: The abdomen is soft and non-tender. There are normal bowel sounds heard in all four quadrants and there is no organomegaly palpated. Musculoskeletal: There is no back tenderness noted. Extremities are non-tender with full range of motion. There is good capillary refill. There is no peripheral edema or calf tenderness elicited. Neurological: Patient is alert and oriented to person, place and time. The patient has symmetrical motor strength in all four extremities. Cranial nerves are grossly intact. Deep tendon reflexes are symmetrical and equal in all four extremities. Psychiatric: The patient has an appropriate affect and does not exhibit any anxiety or depression. Rectal: normal rectal tone Triage Information Reviewed: Yes Vital Signs On Initial Exam: Initial Vitals Temp Pulse Resp BP Pulse Ox 99.6 F 79 18 148/95 96 09/26/18 15:35 09/26/18 15:35 09/26/18 15:35 09/26/18 15:35 09/26/18 15:35 Vital Signs Reviewed: Yes Diagnostics - Vital Signs Vital Signs Temp Pulse Resp BP Pulse Ox 09/26/18 15:35 99.6 F 79 18 148/95 96 - Laboratory Result Diagrams: 09/26/18 18:04 09/26/18 18:04 Lab Statement: Any lab studies that have been ordered have been reviewed, and results considered in the medical decision making process. Re-Evaluation - Re-Evaluation First Eval Re-Evaluation Time: 16:40 Change: Unchanged Comment: rectal exam showing normal rectal tone GIGU Course/Dx - Course Course Of Treatment: Ms. Ceja presented with a difficult story. She has been generally weak for quite some time and felt that she was constipated also. She came in on September 09 worried about constipation and was found on KUB to have a lot of stool. She was given a fleets enema and improved with a large bowel movement. A couple days later she started not feeling like she had control over moving her bowels or bladder and that has been going on since. She saw today felt that she needed an MRI and sent her into the emergency department. She had normal rectal tone to my exam and generalized weakness. I asked Dr. Waters to evaluate her and he came to the department. After evaluating her he did recommend the MRI scan and we are currently pending MRI scan at this time. - Diagnoses Provider Diagnoses: Incontinence - Physician Notifications Discussed Care Of Patient With: Karlos Waters Time Discussed With Above Provider: 16:50 Instructed by Provider To: MD Will See In ED - before an MRI is ordered Discharge - Sign-Out/Discharge Documenting (check all that apply): Sign-Out Patient Signing out patient TO: Yefri Win - pending MRI - Discharge Plan Condition: Stable Referrals: Felix Husain MD [Primary Care Provider] - - Billing Disposition and Condition Condition: STABLE - Attestation Statements Document Initiated by Carmelita: Yes Documenting Scribe: All Duval Provider For Whom Millieibe is Documenting (Include Credential): Yefri Tabor MD Scribe Attestation: I, All Duval, scribed for Yefri Tabor MD on 09/26/18 at 1900. Scribe Documentation Reviewed: Yes Provider Attestation: The documentation as recorded by the All hoover accurately reflects the service I personally performed and the decisions made by me, Yefri Tabor MD Status of Scribe Document: Viewed
[2018-09-26 18:16] LABS: ABS Basophils 0.1 10^3/ul (0-0.2); ABS Eosinophils 0.2 10^3/ul (0-0.6); ABS Lymphocytes 1.1 10^3/ul (1.0-4.8); ABS Monocytes 0.7 10^3/ul (0-0.8); ABS Neutrophils 3.9 10^3/ul (1.5-7.7); ABS Nucleated RBC 0 10^3/ul; Eosinophil % 2.6 %; Hematocrit 33 % (35-47); Hemoglobin 11.2 g/dl (12.0-16.0); Lymphocyte % 19.4 %; Mean Corpuscular HGB Conc 34 g/dl (31-36); Mean Corpuscular Hemoglobin 31 pg (27-31); Mean Corpuscular Volume 93 fL (80-97); Mean Platelet Volume 7.8 fL (7.4-10.4); Nucleated Red Blood Cells % 0; Platelet Count 198 10^3/ul (150-450); Red Blood Count 3.56 10^6/ul (4.00-5.40); Red Cell Distribution Width 15 % (10.5-15); White Blood Count 5.9 10^3/ul (3.5-10.8)
[2018-09-26 18:34] LABS: Albumin 3.1 g/dL (3.2-5.2); Albumin/Globulin Ratio 1.3 (1-3); BUN/Creatinine Ratio 21.5 (8-20); C Reactive Protein 1.62 mg/L (<8.01); Calcium 8.5 mg/dL (8.6-10.3); EGFR Non-African American 69.3 (>60); Globulin 2.3 g/dL (2-4); Potassium 4.2 mmol/L (3.5-5.0); Total Bilirubin 0.5 mg/dL (0.2-1.0); Total Protein 5.4 g/dL (6.4-8.9)
--- NOTE | 2018-09-26 19:30 | ED ---
Progress - Progress Note Progress Note: Pt was signed out by Dr. Tabor to Dr. Win, awaiting MRI results. - Results/Orders Results/Orders: MRI reveals 1. There is a chronic compression fracture of the T9 vertebral body with anterior wedging. No acute fracture. 2. There is a new 9 mm well-defined high signal focus on STIR imaging in the L3 vertebral body without aggressive characteristics. No other focal bony lesion is seen. 3. Severe scoliosis. 4. Moderate degenerative change similar to previous without new focal disc herniation. 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 No visualized explanation for urine retention. ED physician has reviewed this report Re-Evaluation - Re-Evaluation First Eval Re-Evaluation Time: 16:40 Change: Unchanged Comment: rectal exam showing normal rectal tone Course/Dx - Course Course Of Treatment: Patient was signed out by Dr. Tabor to Dr. Win awaiting MRI results. The MRI showed 1. There is a chronic compression fracture of the T9 vertebral body with anterior wedging. No acute fracture. 2. There is a new 9 mm well-defined high signal focus on STIR imaging in the L3. vertebral body without aggressive characteristics. No other focal bony lesion is seen. 3. Severe scoliosis. 4. Moderate degenerative change similar to previous without new focal disc herniation. 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 No visualized explanation for urine retention. ED physician has reviewed this report. Patient will be discharged with follow up from Dr. Husain. The patient is agreeable with this plan. - Diagnoses Provider Diagnoses: Incontinence - Provider Notifications Time Discussed With Above Provider: 16:50 Instructed by Provider To: MD Will See In ED - before an MRI is ordered Discharge - Sign-Out/Discharge Documenting (check all that apply): Patient Departure - discharge, Receiving Sign-Out Receiving patient FROM: Yefri Tabor - Discharge Plan Condition: Stable Disposition: HOME Patient Education Materials: Constipation (ED) Referrals: Felix Husain MD [Primary Care Provider] - Additional Instructions: The MRI done tonight did not show any neurologic cause for your recent bowel and bladder problems. 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 - Billing Disposition and Condition Condition: STABLE Disposition: Home - Attestation Statements Document Initiated by Scribe: Yes Documenting Scribe: Nilo Oreilly Provider For Whom Scribe is Documenting (Include Credential): Yefri Win MD Scribe Attestation: I, Nilo Oreilly, scribed for Yefri Win MD on 09/27/18 at 0235. Scribe Documentation Reviewed: Yes Provider Attestation: The documentation as recorded by the [email or web address] accurately reflects the service I personally performed and the decisions made by me, Yefri Win MD Status of Scribe Document: Viewed
--- NOTE | 2018-09-26 20:34 | CONS ---
NEUROLOGY CONSULTATION: DATE OF CONSULT: 09/26/18 LOCATION: She is in the emergency room. REFERRING PROVIDER: Dr. Tabor. PRIMARY CARE PROVIDER: Dr. Husain. CHIEF COMPLAINT: Bowel and bladder incontinence. HISTORY OF PRESENT ILLNESS: Sayra Ceja is an 82-year-old woman with scoliosis , who developed problems with constipation going back about a month ago. She would have some bowel movements after she ate and with fecal urgency. However, bowel movement is just a small amount and she felt like she could not push. When she would stand up, she would feel like "something would drop" in her pelvis. She was in the emergency room for an enema within the last week or so. In the last 2 weeks, she has noted difficulty with urination. She will have dribbling, incontinence and would not be able to feel when she has to go to the bathroom. Her daughter spoke with Dr. Wlof earlier today and was recommended that she present to the emergency room for lumbar MRI scan for possible cauda equina syndrome. PAST MEDICAL HISTORY: Notable for chronic neck and back pain, vitamin B12 deficiency, hypothyroidism. MEDICATIONS AT HOME: Consist of: 1. B12 injections. 2. Levothyroxine 25 mcg p.o. q. day. ALLERGIES: She has multiple drug allergies listed in the EMR. SULFA DRUGS cause hallucinations and nausea and vomiting. HYDROCODONE and DILAUDID did the same. REVIEW OF SYSTEMS: Negative for falls. She feels that her legs are strong. She was having some type of pain in her feet earlier this year, which seemed to have resolved. It is hard for her to describe, but it was intense. 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 PHYSICAL EXAM: She is an elderly, very frail woman, lying on her side in the emergency room [facility]. Blood pressure on the monitor is about 118/80, heart rates in the 70s and regular, respiratory rate is 16. Heart is in a regular rhythm without murmurs. There are no cervical bruits. Oral mucosa is moist. She has severe kyphoscoliosis. Neurological Exam: Pupils react equally from 3 to 2 mm. Eye movements are full. Funduscopic exam is normal bilaterally. Facial musculature is symmetric. Facial sensation to light touch is symmetric. Palate and tongue appear normal and there is no dysarthria. Motor exam reveals diffuse, decreased muscle bulk. She has really pretty good strength in her arms proximally and distally. There is no spasticity in the arms. In the lower extremities, there is also no spasticity other than a question of a little catch in the right knee. She has actually quite good strength proximally and distally in the lower extremities. Sensory exam reveals intact to light touch and pin discrimination in upper and lower extremities. Reflexes are brisk at the knees and in the upper extremities. Adductor responses are present, but not crossed. Ankle reflexes are absent. Plantar responses flexor on the left and equivocal on the right. She is alert and oriented and a very good detailed historian. Memory is intact and language is fluent. 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 MRI of the cervical spine from 05/03/18, also reveals a multilevel disk disease and bone spurs with some central canal stenosis, particularly at C4-5. She has a marked kyphoscoliosis. IMPRESSION: Impression is that of possible cauda equina syndrome. She, certainly, is at risk. PLAN: I spoke with Dr. Tabor and recommended a nonconstrast MRI of the lumbar spine. If it does show compression, then I would recommend neurosurgical consultation. I have explained my impression to Sayra and her daughter and son -in-law. We discussed briefly the possibility of surgical decompression and the likelihood of recovery. We discussed that this is a time-sensitive issue and that if in fact she does have compression; the longer it's present, the less likelihood she will recover bladder and bowel function. [id number]/[facility] #: [id number] ZAHRA
[2018-09-26 21:10] VITALS: BP 137/77
== END 2018-09-26 21:23 | disposition home or self-care (01) ==
LOC: ED 15:32
DX: R32 Unspecified urinary incontinence (principal); R15.9 Full incontinence of feces; D51.0 Vitamin B12 deficiency anemia due to intrinsic factor deficiency; M41.9 Scoliosis, unspecified; M54.2 Cervicalgia; M54.9 Dorsalgia, unspecified; E03.9 Hypothyroidism, unspecified; E53.8 Deficiency of other specified B group vitamins; Z88.2 Allergy status to sulfonamides; R53.1 Weakness; M48.54XA Collapsed vertebra, not elsewhere classified, thoracic region, initial encounter for fracture; X58.XXXA Exposure to other specified factors, initial encounter; Y92.9 Unspecified place or not applicable
CPT/HCPCS: 36415; 72148; 80053; 85025; 86140; 99283

== ENCOUNTER 2018-10-11 13:40 | Inpatient (IN) | payer MEDICARE, OTHER ==
--- OUTSIDE RECORDS SUMMARY | 2018-10-11 14:07 | XMS REPORT | Continuity of Care Document ---
:1935 External Reference #:[id number] Author Name Xenia Kwok PA-C Address [address] [place] [address] [place] [address] Care Team Providers Name Role Phone Felix Husain MD Care Team Information Seat Mender Unavailable Payers Type Date Identification Numbers Payment Provider Subscriber Policy Number: [id number] Medicare Sayra Janene Marcial PayID: [id number] [facility] [address] [place] [address] Policy Number: [id number] Formerly [facility] Sayra Watters Ceja Group Number: [id number] [address] PayID: [id number] [place] [address] Advance Directives Description No Information Available Problems Date Description Provider Status Onset: 10/11/2018 Fecal impaction Xenia Kwok PA-C Active Onset: 10/11/2018 Constipation Xenia Kwok PA-C Active Family History Date Family Member(s) Problem(s) Comments General Noncontributory Social History Type Date Description Comments Sex Unknown Tobacco Use Start: Unknown Patient has never smoked Smoking Status Reviewed: 10/11/18 Patient has never smoked Allergies, Adverse Reactions, Alerts Date Description Reaction Status Severity Comments 10/11/2018 Sulfa Antibiotics Active 10/11/2018 Morphine Active Medications Medication Date Status Form Strength Qnty SIG Indications Ordering Provider B-12 Active Tablets 1000mcg place 1 Unknown 000 Sub tablet under the tongue Three Times A Week Levothyroxine Active Tablets 25mcg take 1 Unknown Sodium 000 tablet by mouth On An Empty Stomach Immunizations Description No Information Available Vital Signs Date Vital Result Comment 10/11/2018 9:58am Height 54 inches 4'6" Weight 82.00 lb BP Systolic 111 mmHg BP Diastolic 70 mmHg Heart Rate 80 /min BMI (Body Mass Index) 19.8 kg/m2 Results Test Date Facility Test Result H/L Range Note CMP(!) 09/26/2018 [facility] Sodium(!) <pending> Potassium(!) <pending> Chloride Serum/Plasma(!) <pending> Carbon Dioxide Ser/Plasm(!) <pending> BUN - Urea Nitrogen(!) <pending> Calcium Ser/Plasma Mass/Vol(!) <pending> Creatinine Serum Mass/Vol(!) <pending> Glucose Serum(!) <pending> BUN/Creatinine Ratio(!) <pending> Albumin Serum/Plasma(!) <pending> Alkaline Phosphatase(!) <pending> Bilirubin Total Mass/Vol(!) <pending> Ast - Sgot <pending> Alt - SGPT <pending> Protein Total <pending> Laboratory test 09/26/2018 [facility] C-Reative Protein <pending> finding CBC W/Auto 09/26/2018 [facility] White Blood Count <pending> Differential(!) Ser Auto CNT RBC Red Blood Count <pending> Hemoglobin Blood <pending> Hematocrit <pending> MCV (Corpuscular Volume) <pending> MCH (Corpuscular Hemoglobin) <pending> MCHC (Corpuscular Hemog Conc) <pending> RDW <pending> Platelet Count Blood Auto CNT <pending> MPV <pending> Lymph% <pending> [place]ata% <pending> Neutrophil % <pending> Absolute Lymphocytes <pending> Absolute Monocytes <pending> Absolute Neutrophils <pending> Xray 09/26/[address] [facility] Radiology MRI Lumbar Spine W/O <pending> Xray 09/08/[address] [facility] Radiology CT, Abd & Pelvis W/ Contrast <pending> Xray 09/08/[address] [facility] Radiology Abdomen/KUB 1VW <pending> Procedures Date Code Description Status 11/03/2004 19942 Colonoscopy Completed Encounters Description No Information Available Plan of Treatment No Information Available
--- OUTSIDE RECORDS SUMMARY | 2018-10-11 14:07 | XMS REPORT | Continuity of Care Document ---
:1935 External Reference #:[id number] Author Name Maira Whatley Care Team Providers Name Role Phone Felix Husain MD Primary Care Physician Unavailable Payers Type Date Identification Numbers Payment Provider Subscriber Policy Number: [id number] Medicare Sayra Ceja PayID: [id number] [address] [place] [address] Policy Number: [id number] [facility] Sayra Ceja Group Number: [id number] [address] PayID: [id number] [place] [address] Advance Directives Description No Information Available Problems [...] Patient has never smoked Smoking Status Reviewed: 10/04/18 Patient has never smoked Exercise Exercises regularly small trampoline Type/Frequency daily Allergies, Adverse Reactions, Alerts Date Description Reaction Status Severity Comments 08/24/2010 Sulfa severe exhaustion, vomiting Active 01/25/2015 Dilaudid Active hallucinations 07/06/2017 Hay Fever Active 10/04/2018 Levaquin Active swelling of feet Medications Medication Date Status Form Strength Qnty SIG Indications Ordering Provider Levothyroxine Active Tablets 25mcg 30tabs 1 tab Sheila Sodium 018 daily on Chirag, MD empty stomach (not started yet) Oxygen Active Misc 1units please R09.02 Sheila 018 use o2 at MD Chirag 2l/min at night I27.20 B12 Active 1000mcg SL three Unknown times a week Melatonin Active Capsules 10mg 1 PO qd (on Unknown hold) Ipratropium Active Solution 0.03% spray 2 Unknown [place]ward sprays in each nostril two times daily as needed Calcium Active Tablets 333mg 1 by mouth Unknown every day (on hold) Potassium Active Capsules 200mg 3 caps by Unknown mouth qd (on hold) Probiotic Daily Active Capsules 1 by mouth Unknown twice a day Co Q10 03/26/2013 - Hx Capsules 100mg 1 po qd Other 01/24/2015 Ordering Provider Vitamin D 08/24/2010 - Hx Capsules 1000Unit 100 po qd Keith Thomas 01/24/2015 baltazar Rider M.D. Vitamin C 08/24/2010 - Hx Tablets 500mg 1 po qd Keith Thomas 09/04/2018 Price Adkins Forteo - Hx Solution 750mcg/3ML use ad Unknown 03/21/2012 directed Ambien - Hx Tablets 5mg 30t [...] every day Cholestyramine - Hx Packet 4gm 10/11 packet Unknown 03/12/2016 once daily Extra Strength [...] Available Vital Signs Date Vital Result Comment 10/04/2018 10:38am Heart Rate 78 /min Respiratory Rate 18 /min Body Temperature 98.9 F 09/06/2018 10:07am Height 56 inches 4'8" Weight [...] Date Facility Test Result H/L Range Note CBC W/Auto 05/14/2018 [facility] White Blood 6.2 10^3/uL N 3.5 -10.[address] [place] [address] [phone] Red Blood Count 3.72 10^6/uL Low 4.00-5.40 [...] 0-2 Nucleated Red Blood Cells % 0.1 Laboratory test 05/14/2018 [facility] Erythrocyte Sed 15 mm/Hr N 0-[address] [place] [address] [phone] CMP Panel 05/14/2018 [facility] Sodium 135 mmol/L N 135-[address] [place] [address] [phone] Potassium 4.4 mmol/L N 3.5-5.0 Chloride 97 [...] Egfr 73.1 >60 1 Laboratory test 05/14/2018 [facility] TSH (Thyroid 5.26 mcIU/mL N 0.34-5.[address] Stim [place]orm) [place] [address] [phone] CBC Auto Diff 06/02/2017 [facility] White Blood 6.4 10^3/uL N 3.5-10.[address] [place] [address] [phone] Red Blood Count 3.73 10^6/uL Low 4.0-5.4 [...] Nucleated Red Blood Cells % 0.1 N Comp Metabolic Panel 06/02/2017 [facility] Sodium 131 mmol/L Low 133-[address] [place] [address] [phone] Potassium 4.6 mmol/L N 3.5-5.0 Chloride 100 [...] 70.5 N >60 Egfr 90.7 N >60 2 Laboratory test 06/02/2017 [facility] TSH (Thyroid 6.44 High 0.34-5.60 [address] Stim Horm) mcIU/[place] [address] [phone] 1 Because ethnic data is not always [...] 5 Kidney failure <15 (or dialysis) 2 Because ethnic data is not always readily [...] 15-29 5 Kidney failure <15 (or dialysis) 3 Copy Result to: CINDA ZAPTAA ([id number]) Procedures Date Code Description Status 10/04/2018 17426 Anoscopy Completed 04/25/2018 78334 Holter Monitor Review (24 hr)dr review & interp only Completed 04/22/2018 87649 ECG Monitor/Recording W/Visual Superimposition Scanning Completed 03/19/2018 75039 EKG Tracing & Interpretation Completed 07/06/2017 62848 EKG Tracing & Interpretation Completed 07/03/2017 45327 ECHO Transthoracic, Real-Time 2D With Doppler And Color Completed Flow 05/01/2017 50130 Holter Monitor Review (24 hr)dr review & interp only Completed 04/30/2017 40809 ECG Monitor/Recording W/Visual Superimposition Scanning Completed 03/12/2017 46170 EKG Tracing & Interpretation Completed 09/04/2016 93808 Pulmonary Function><Bronchodil Completed 01/19/2016 93132 EKG Tracing & Interpretation Completed 03/12/2015 61910 Holter Monitor Review (24 hr)dr review & interp only Completed 03/12/2015 70868 ECG Monitor/Recording W/Visual Superimposition Scanning Completed 03/08/2015 85501 ECG Monitor/Recording W/Visual Superimposition Scanning Completed 03/08/2015 58217 Holter Monitor Review (24 hr)dr review & interp only Completed 02/15/2015 38710 ECHO Transthoracic, Real-Time 2D With Doppler And Color Completed Flow 01/25/2015 05493 EKG Tracing & Interpretation Completed 01/22/2014 68440 Repair Hernia Inguinal > 5Yrs, Reducible Completed 03/26/2013 92714 EKG Tracing & Interpretation Completed 03/21/2012 23072 EKG Tracing & Interpretation Completed 01/15/2012 72531 ECHO Transthoracic, Real-Time 2D With Doppler And Color Completed Flow 04/13/2011 22442 EKG Tracing & Interpretation Completed 02/02/2011 72865 ECHO Transthoracic, Real-Time 2D With Doppler And Color Completed Flow 10/18/2010 95990 Treadmill Interp/Report Only Completed 10/18/2010 82644 Stress Test Supervsn W/Out I/R Completed 08/24/2010 79744 EKG Tracing & Interpretation Completed 06/08/2010 18466 ECHO Transthorasic Realtime 2D W Doppler & Color Flow Hosp Completed Encounters Type Date Location Provider Dx Diagnosis Office Visit 09/06/2018 [facility] Gastroenterology Velma Guillory, K59.00 Constipation, 9:45a 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 unspecified M41.9 Scoliosis, unspecified Office Visit 07/30/2018 2:30p Pulmonology And Sheila J98.4 Other disorders [facility] Chirag of lung Manager Case M41.9 Scoliosis, unspecified R09.02 Hypoxemia Office Visit 03/19/2018 1:40p [facility] Keith Thomas I49.5 Sick sinus Price Adkins syndrome I34.0 Nonrheumatic mitral (valve) insufficiency I87.2 Venous insufficiency (chronic) (peripheral) 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9 Hypothyroidism, unspecified Office Visit 01/19/2016 3:20p [place] Keith Thomas M41.34 Thoracogenic Cardiology Price Adkins scoliosis, thoracic region I27.0 Primary pulmonary hypertension I27.81 Cor pulmonale (chronic) Office Visit 01/25/2015 1:40p [facility] Keith Thomas 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 786.50 Pain Chest Unspec 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 Office Visit 03/26/2013 11:20a [facility] Keith Thomas 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 Office Visit 03/21/2012 11:00a [facility] Keith Thomas 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 424.0 Mitral Valve Disorder 737.30 Scoliosis & Kyphoscoliosis Idiopathic Office Visit 04/13/2011 3:00p [facility] Keith Thomas 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
--- NOTE | 2018-10-11 16:23 | ED ---
GI/ HPI - HPI Summary HPI Summary: A 83 y/o female accompanied by her daughter presents to the ED c/o constipation reaching 2/10 in severity. Currently, the patient has a pulse of 141/97. As per triage, "Stool impaction with constipation persistently since mid August. Sent by PCP for manual disempaction". According to the daughter, it has been 12 days since the patient's last BM. Patient is a ambulatory, but is more weak than usual. As the constipation has progressed, the patient has left leg pitting edema. Additionally, a ultrasound was done in which a blood clot was found yesterday. Patient denies any headache, fevers, chills, double vision, blurry vision, ear pain, sore throat, chest pain, cough, abdominal pain ( distended), SOB, but does have GERD. She hasn't been eating as much, but she is backed up from the ingestion. - History of Current Complaint Chief Complaint: EDGeneral Stated Complaint: IMPACTED BOWEL Hx Obtained From: Patient, Family/Box Spring Upholsterer - DAUGHTER Hx From Patient Unobtainable Due To: Other - DAUGHTER GIVES PROPER HISTORY. Onset/Duration: Started Weeks Ago, Still Present, Worse Since Timing: Constant Current Severity: None Pain Intensity: 2 Location of Pain: Rectal Pain Characteristics: Pressure Associated Signs and Symptoms: Positive: Constipation Aggravating Factor(s): Nothing Alleviating Factor(s): Nothing - Allergy/Home Medications Allergies/Adverse Reactions: Allergies Allergy/AdvReac Type Severity Reaction Status Date / Time hydrocodone Allergy Nausea Verified 10/11/18 13:51 hydromorphone [From Dilaudid] Allergy Nausea Verified 10/11/18 13:51 levofloxacin [From Levaquin] Allergy See Comment Verified 10/11/18 13:51 sulfabenzamide Allergy Vomiting Verified 10/11/18 13:51 sulfamethoxazole Allergy Hallucinati Verified 10/11/18 13:51 [From Septra] ons trimethoprim [From Septra] Allergy Hallucinati Verified 10/11/18 13:51 ons ENVIRONMENTAL/.SEASONAL Allergy SNEEZING, Uncoded 10/11/18 13:51 HAYFEVER RUNNY NOSE, CONGESTION SULFA Allergy Vomiting Uncoded 10/11/18 13:51 PMH/Surg Hx/FS Hx/Imm Hx Endocrine/Hematology History: Reports: Hx Anemia - PERNICIOUS ANEMIA Denies: Hx Anticoagulant Therapy, Hx Diabetes, Hx Thyroid Disease Cardiovascular History: Reports: 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 MABRY Respiratory History: Denies: Hx Asthma, Hx Chronic Obstructive Pulmonary Disease (COPD) GI History: Reports: Other GI Disorders - DIFFICULTY SWALLOWING SOME PILLS Denies: Hx Ulcer History: Denies: Hx Renal Disease Comment Only: Other Problems/Disorders - HX OF UTI'S, NONE NOW Musculoskeletal History: Reports: Hx Osteoporosis, Other Musculoskeletal History - RIGHT SIDE DIFF WITH RANGE OF MOTION Denies: Hx Rheumatoid Arthritis Sensory History: Reports: Hx Cataracts, Hx Contacts or Glasses - GLASSES Denies: Hx Hearing Aid Opthamlomology History: Reports: Hx Cataracts, Hx Contacts or Glasses - GLASSES Neurological History: 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 D&C X2. [facility] 01/22/14. Tonsillectomy Hx Anesthesia Reactions: No Infectious Disease History: No Infectious Disease History: Reports: Hx Clostridium Difficile Denies: Hx Hepatitis, Hx Human Immunodeficiency Virus (HIV), History Other Infectious Disease, Traveled Outside the [place] in Last 30 Days - Family History Known Family History: Positive: Diabetes - brother Negative: Hypertension - Social History Alcohol Use: None Alcohol Amount: wine 3 times per week Substance Use Type: Reports: Other Substance Use Comment - Amount & Last Used: CBD oil Smoking Status (MU): Never Smoked Tobacco Have You Smoked in the Last Year: No Review of Systems Negative: Fever, Chills Positive: Other - NEGATIVE: DOUBLE VISION. Negative: Blurred Vision Negative: Sore Throat, Ear Ache Negative: Chest Pain Negative: Shortness Of Breath, Cough Positive: Other - NEGATIVE: BLOOD IN STOOL; POSITIVE: CONSTIPATION.. Negative: Abdominal Pain, Vomiting, Diarrhea, Nausea Negative: dysuria, hematuria Positive: Other - NEGATIVE: NECK PAIN AND BACK PAIN.. Negative: Edema Negative: Rash, Bruising Negative: Headache Negative: Anxious, Depressed All Other Systems Reviewed And Are Negative: No Physical Exam - Summary Physical Exam Summary: Appearance: Alert, conversive, nontoxic appearing, thin, frail Skin: Warm, dry, no mottling, no rashes, no contusions HEENT: EOMI, PERRL, dry mucous membranes Neck: No masses on the neck, supple Respiratory: Clear to auscultation, breath sounds present, no rales, no rhonchi , no wheezes, slightly diminished breath sounds Cardiovascular: RRR, pulses are symmetrical in both lower and upper extremities Abdomen: Soft, non-tender, distended abdomen Bowel Sounds: Present Musculoskeletal: No CVA tenderness, no obvious deformity, moving all extremities in a grossly normal manner, left leg pitting edema. Neurological: A&Ox3, CN II-XII Intact, moving all extremities symmetrically Psychiatric: Normal affect and mood Rectal Exam: 1718 with carcass trimmer Dyana (nurse) - high in the rectal vault is large stool bolus but was soft stool Triage Information Reviewed: Yes Vital Signs On Initial Exam: Initial Vitals Temp Pulse Resp BP Pulse Ox 98.1 F 81 16 122/75 100 10/11/18 13:48 10/11/18 13:48 10/11/18 13:48 10/11/18 13:48 10/11/18 13:48 Vital Signs Reviewed: Yes Diagnostics - Vital Signs Vital Signs Temp Pulse Resp BP Pulse Ox 10/11/18 15:57 121/89 10/11/18 13:48 98.1 F 81 16 122/75 100 - Laboratory Result Diagrams: 10/11/18 16:32 10/11/18 16:32 Lab Statement: Any lab studies that have been ordered have been reviewed, and results considered in the medical decision making process. - Radiology ABDOMEN XR Radiology Interpretation Completed By: ED Physician Summary of Radiographic Findings: DISTENDED COLON AND SIGNIFICANT STOOL IN THE RECTAL VAULT AND THROUGHOUT MOST OF THE COLON. PENDING OFFICIAL REPORT. GIGU Course/Dx - Course Course Of Treatment: A 83 y/o female accompanied by her daughter presents to the ED c/o constipation reaching 2/10 in severity. Currently, the patient has a pulse of 141/97. According to the daughter, it has been 12 days since the patient's last BM. Patient is a ambulatory, but is more weak than usual. Physical examination findings significant for dry mucous membranes, thin, frail , slightly diminished breath sounds, left leg pitting edema, distended abdomen. Rectal exam revealed high in the rectal vault is large stool bolus but was soft stool. An Abdomen XR revealed distended colon and significant stool in the rectal vault and throughout most of the colon. Hematology and Chemistry screens were done. No significant laboratory abnormalities were found. In the ED course , the patient received IV fluids. Patient care was discussed with hospitalist, Dr. Dinh Perales, who accepts patient for admission. Patient will be admitted with a diagnosis of mild dehydration, weakness, and constipation. Patient is agreeable with is plan. - Diagnoses Provider Diagnoses: Mild dehydration, Weakness, Constipation - Physician Notifications Discussed Care Of Patient With: Dinh Perales Time Discussed With Above Provider: 17:40 Instructed by Provider To: Other - ACCEPTS PATIENT FOR ADMISSION. Discharge - Sign-Out/Discharge Documenting (check all that apply): Patient Departure - ADMIT, Sign-Out Patient - RODRIGO Signing out patient TO: Dinh Perales Receiving patient FROM: Aliyah Pichardo - Discharge Plan Condition: Stable Disposition: ADMITTED TO [facility] Referrals: Felix Husain MD [Primary Care Provider] - - Billing Disposition and Condition Condition: STABLE Disposition: Admitted to [facility] - Attestation Statements Document Initiated by Carmelita: Yes Documenting Scribe: Owen Cabrera Provider For Whom Carmelita is Documenting (Include Credential): Aliyah Pichardo MD Scribe Attestation: Owen Michaels scribed for Aliyah Pichardo MD on 10/11/18 at 1903. Scribe Documentation Reviewed: Yes Provider Attestation: The documentation as recorded by the Owen hoover accurately reflects the service I personally performed and the decisions made by me, Aliyah Pichardo MD Status of Scribe Document: Viewed
[2018-10-11 16:38] LABS: ABS Basophils 0 10^3/ul (0-0.2); ABS Eosinophils 0.1 10^3/ul (0-0.6); ABS Lymphocytes 1.1 10^3/ul (1.0-4.8); ABS Monocytes 0.7 10^3/ul (0-0.8); ABS Neutrophils 5.6 10^3/ul (1.5-7.7); ABS Nucleated RBC 0 10^3/ul; Eosinophil % 1.3 %; Hematocrit 35 % (35-47); Hemoglobin 11.8 g/dl (12.0-16.0); Lymphocyte % 14.3 %; Mean Corpuscular HGB Conc 34 g/dl (31-36); Mean Corpuscular Hemoglobin 31 pg (27-31); Mean Corpuscular Volume 93 fL (80-97); Mean Platelet Volume 7.8 fL (7.4-10.4); Nucleated Red Blood Cells % 0; Platelet Count 202 10^3/ul (150-450); Red Blood Count 3.77 10^6/ul (4.00-5.40); Red Cell Distribution Width 16 % (10.5-15); White Blood Count 7.5 10^3/ul (3.5-10.8)
[2018-10-11 17:08] LABS: Albumin 3.4 g/dL (3.2-5.2); Albumin/Globulin Ratio 1.5 (1-3); BUN/Creatinine Ratio 27.5 (8-20); EGFR Non-African American 68.2 (>60); Globulin 2.2 g/dL (2-4); Potassium 4.1 mmol/L (3.5-5.0); Total Bilirubin 0.6 mg/dL (0.2-1.0); Total Protein 5.6 g/dL (6.4-8.9)
[2018-10-11] MEDS ORDERED: NS 0.9% 500 ML* 500 ML IV ONE (17:27)
[2018-10-11] MEDS ORDERED: PEG 3000 GI LAVAGE* 1 GALLON PO ONE (18:56)
[2018-10-11] MEDS ORDERED: Cyanocobalamin TAB* 500 MCG PO SCH (19:00)
--- NOTE | 2018-10-11 20:55 | HP ---
ADMITTING HISTORY AND PHYSICAL: DATE OF ADMISSION: 10/11/18 CHIEF COMPLAINT: Constipation. HISTORY OF PRESENT ILLNESS: The patient is an 83-year-old lady with history of vitamin B12 deficiency, scoliosis, osteoporosis, and recent diagnosis of hypothyroidism about a week ago and recently was started on low-dose levothyroxine at 25 mcg p.o. q.d. Her daughter at bedside mentions that since 09/29/18 she has been constipated that improved with an enema x1; however, since , she has not passed any bowel movement. She then went to Dr. Husain, who then suggested for the patient to be evaluated in the ED. She also mentions that 1 day prior to admission and being evaluated by Dr. Husain, she was diagnosed with DVT by a Doppler ultrasound, which shows DVT of the paired peroneal veins on the left. However, upon discussing the above results with Dr. Adkins as well as an unknown vascular surgeon in the clinic, they have decided not to treat the patient for unclear reasons, possibly due to her advanced age and possible risks of bleed. Per family, however, they will touch base with Dr. Adkins and/or Dr. Husain in the a.m. PAST MEDICAL AND SURGICAL HISTORY: Vitamin B12 deficiency, DVT recently diagnosed; not on anticoagulation per Dr. Husain and Dr. Adkins as well as an unknown vascular surgeon who reviewed the case with her yesterday and will touch base with either Dr. Husain or Dr. Adkins in the a.m., hypothyroidism , scoliosis, osteoporosis, status post tonsillectomy, multiple D and Cs, bilateral cataract extractions. HOME MEDICATIONS: 1. Cyanocobalamin. 2. Synthroid 25 mcg p.o. q.d. ALLERGIES: SEPTRA, BACTRIM, and other SULFA DRUGS that cause severe vomiting, HYDROCODONE causes nausea, DILAUDID causes hallucination. FAMILY HISTORY: Father had an unknown arrhythmia. No known reactions with anesthesia, bleeding tendencies, or clotting disorders. SOCIAL HISTORY: She is a , a nonsmoker, and she lives alone at home and recently had VNA service in place late September 2018. REVIEW OF SYSTEMS: Constipation as described above, left lower extremity edema as described due to recently diagnosed DVT that is not being anticoagulated at this point, and the rest of the 14-point review of systems is, otherwise, unremarkable. PHYSICAL EXAMINATION GENERAL APPEARANCE: The patient is awake, alert, and oriented x3, not in acute distress. VITAL SIGNS: Shows the most recent vital signs of records with blood pressure 145/90, 99% saturation on room air, 74 beats per minute heart rate. HEENT: Normocephalic, atraumatic. PERRLA. Extraocular muscles intact. Negative for icterus. Moist oral mucosa. Negative throat erythema. NECK: Soft, supple with no cervical lymphadenopathy. No JVD. CHEST: Clear to auscultation bilaterally, good air entry. No wheezes, rales, or rhonchi. HEART: S1, S2 within normal limits. Regular rate and rhythm. No murmurs, rubs , or gallops. ABDOMEN: Soft, slightly distended, nontender. Hypoactive bowel sounds x4. EXTREMITIES: No cyanosis, clubbing with 1+ left lower extremity edema. PSYCHIATRIC: No active psychosis, depression, suicidal or homicidal ideation. SKIN: Warm to touch. DIAGNOSTIC STUDIES/LAB DATA: Most recent and pertinent laboratories drawn show CBC with WBC and platelet counts that were normal. H and H slightly low at 11.8 and 35, respectively. Sodium and potassium are 134 and 4.1. BUN and creatinine and GFR are found to be normal. LFTs are found to be normal. A repeat abdominal imaging has been ordered by Dr. Rausch and is currently pending. An abdominal x-ray done on 10/09/18 shows findings consistent with pathologic dilatation of a stool-filled rectum consistent with fecal impaction/ constipation and a venous Doppler done yesterday on 10/10/18, which showed deep vein thrombosis in one of the paired peroneal veins on the left. ASSESSMENT AND PLAN: The patient is an 83-year-old lady with history of vitamin B12 deficiency and recent diagnosis of hypothyroidism, being admitted for constipation/stool impaction. 1. Constipation. We will place the patient on GoLYTELY and ask the nursing staff for manual disimpaction. I would encourage p.o. intake. I agree and will place the patient on normal saline at 75 cc an hour with max of 2 bags until the patient is reevaluated. 2. Deep venous thrombosis. At this point, we will hold full anticoagulation given daughter's claim that the patient has been evaluated by vascular surgeon, Dr. Husain, as well as Dr. Adkins and we will defer at this time. We will place the patient on heparin subcu for DVT prophylaxis at this time. 3. Hypothyroidism. Continue Synthroid. 4. DVT prophylaxis. Please see above discussion. 5. Disposition. As above, for PT evaluation in a.m. [id number]/[facility] #: [id number] [facility]
[2018-10-11 21:46] LABS: Activated Partial Thrombo Time 29.4 seconds (26.0-36.3)
[2018-10-11 21:50] LABS: ABS Basophils 0 10^3/ul (0-0.2); ABS Eosinophils 0.1 10^3/ul (0-0.6); ABS Lymphocytes 1.2 10^3/ul (1.0-4.8); ABS Monocytes 0.6 10^3/ul (0-0.8); ABS Neutrophils 4.6 10^3/ul (1.5-7.7); ABS Nucleated RBC 0 10^3/ul; Eosinophil % 1.8 %; Hematocrit 38 % (35-47); Hemoglobin 12.5 g/dl (12.0-16.0); Lymphocyte % 17.8 %; Mean Corpuscular HGB Conc 33 g/dl (31-36); Mean Corpuscular Hemoglobin 32 pg (27-31); Mean Corpuscular Volume 98 fL (80-97); Mean Platelet Volume 7.7 fL (7.4-10.4); Nucleated Red Blood Cells % 0.1; Platelet Count 215 10^3/ul (150-450); Red Blood Count 3.93 10^6/ul (4.00-5.40); Red Cell Distribution Width 16 % (10.5-15); White Blood Count 6.6 10^3/ul (3.5-10.8)
[2018-10-11 21:54] LABS: EGFR Non-African American 65.3 (>60)
[2018-10-11] MEDS ORDERED: Sodium Phosphate ADULT ENEMA* 118 ml bottle PR PRN (21:54)
[2018-10-11] MEDS: NS 0.9% 1000 ML* 1,000 ML IV SCH (22:22)
[2018-10-12] MEDS ORDERED: PEG 3000 GI LAVAGE* 1 GALLON PO ONE ×2 (01:03→12:26)
[2018-10-12] MEDS: Heparin VIAL(*) 5000 UNITS/ML VIAL (FIVE THOUSAND) SUBCUT SCH ×3 (05:30→22:09)
[2018-10-12] MEDS: Levothyroxine TAB* 25 MCG TAB PO SCH (05:41)
[2018-10-12 07:34] LABS: ABS Basophils 0 10^3/ul (0-0.2); ABS Eosinophils 0 10^3/ul (0-0.6); ABS Lymphocytes 0.9 10^3/ul (1.0-4.8); ABS Monocytes 0.5 10^3/ul (0-0.8); ABS Neutrophils 5.4 10^3/ul (1.5-7.7); ABS Nucleated RBC 0 10^3/ul; Eosinophil % 0.6 %; Hematocrit 39 % (35-47); Hemoglobin 12.6 g/dl (12.0-16.0); Lymphocyte % 13.6 %; Mean Corpuscular HGB Conc 32 g/dl (31-36); Mean Corpuscular Hemoglobin 31 pg (27-31); Mean Corpuscular Volume 96 fL (80-97); Mean Platelet Volume 8.2 fL (7.4-10.4); Nucleated Red Blood Cells % 0.1; Platelet Count 197 10^3/ul (150-450); Red Blood Count 4.08 10^6/ul (4.00-5.40); Red Cell Distribution Width 16 % (10.5-15)
[2018-10-12 08:17] LABS: Albumin 3.1 g/dL (3.2-5.2); CO2 Carbon Dioxide 21 mmol/L (22-32); Calcium 8.7 mg/dL (8.6-10.3); Chloride 100 mmol/L (101-111); Magnesium 2.1 mg/dL (1.9-2.7); Sodium 134 mmol/L (135-145)
[2018-10-12 08:23] LABS: ALT 7 U/L (7-52); Albumin/Globulin Ratio 1.3 (1-3); Alkaline Phosphatase 60 U/L (34-104); BUN/Creatinine Ratio 29.3 (8-20); Blood Urea Nitrogen 22 mg/dL (6-24); EGFR Non-African American 73.4 (>60); Globulin 2.3 g/dL (2-4); Glucose 55 mg/dL (70-100); Phosphorus 3.6 mg/dL (2.5-5.0); Total Protein 5.4 g/dL (6.4-8.9)
[2018-10-12 08:35] LABS: Anion Gap 13 mmol/L (2-11)
[2018-10-12] MEDS ORDERED: Polyethylene Glycol 3350* 17 GM PACKET PO PRN (09:41)
[2018-10-12] MEDS: Docusate CAP* 100 MG PO SCH (10:14)
[2018-10-12] MEDS: Senna TAB PO SCH (10:45)
[2018-10-12] MEDS ORDERED: Iohexol 350* (CONTRAST) 500 ML MDV IV ONE (13:16)
--- NOTE | 2018-10-12 17:11 | PN ---
Subjective Date of Service: 10/12/18 Interval History: Pt seen and examined. Meds and labs reviewed. Spoke w/Dr. Adkins today to touch base regarding pts confusing history who mentioned that his last conversation w/Dr. Husain, he had the impression that pt will be anticoagulated sometime in the future. However, pt not yet started on anticoagulation due to expectation of possible mechanical disempaction. Furthermore, Dr. Adkins also mentioned she has frequent PACs during her last EM/ [facility] and his recollection is that she had mildly elevated PA pressures. He gave me Dr. Ying number who I then subsequently speak with who mentioned that upon discussing Doppler results w/ Dr. Palmer of [facility], they felt that the data was equivocal in terms of anticoagulating peronial vein DVT that hasnt crossed her knees. Some sources suggest observation while some suggest anticoagulation. The plan is to better evaluate her venous distribution in her hip/lower abdomen once she is disempacted and order a contrast CT of of abd/pelvis to make sure the pelvic and abdominal veins are imaged to determine whether her kyphoscoliosis makes her more prone to clots or there are any proximal clots. Unfortunately, pt has been very noncompliant with meds and diagnostic modalities and upon explaining above w/both pt, her daughter, and her daughter s boyfriend at bedside, she has agreed with the plan of golytely and to obtain a CTA of Chest to rule out PE due to hypoxia and elevated PA pressures. CC: N/A ROS: Denied FUENTES/dizziness, F/C, N/V, CP, SOB, increased cough, sputum production , abd pain, diarrhea, constipation, dysuria, myalgias, arthralgias, throat pain , and new skin lesions. The rest of the 14 point ROS are unremarkable. PHYSICAL EXAM: GEN APPEARANCE: Awake, not in acute distress HEENT: NC/AT, PERRLA, moist oral mucosa, (-) throat erythema NECK: Soft, supple, (-) cervical LAD, (-)JVD HEART: S1S2 WNL, RRR, No MRG CHEST: CTA, BL, GAE, No W/R/R ABD: Soft, (+)Distended/NT, NABS 4x Q EXT: No C/C/LLE edema +1 SKIN: Warm to touch PSYCH: No active psychosis, hallucinations, depression, SI/HI Objective Active Medications: Cyanocobalamin (Vitamin B12 Tab*) 1,000 mcg PO Q48H [facility] Last Admin: 10/11/18 22:31 Dose: 1,000 mcg Docusate Sodium (Colace Cap*) 100 mg PO DAILY [facility] Last Admin: 10/12/18 10:14 Dose: Not Given Heparin Sodium (Porcine) (Heparin Vial(*)) 5,000 units SUBCUT Q12HR [facility] Last Admin: 10/12/18 10:14 Dose: Not Given Sodium Chloride (Ns 0.9% 1000 Ml*) 1,000 mls @ 75 mls/hr IV PER RATE [facility] Stop: 10/13/18 08:34 Last Admin: 10/11/18 22:22 Dose: 75 mls/hr Levothyroxine Sodium (Synthroid Tab*) 25 mcg PO DAILY@0600 [facility] Last Admin: 10/12/18 05:41 Dose: 25 mcg Polyethylene Glycol/Electrolytes (Miralax*) 17 gm PO DAILY PRN PRN Reason: CONSTIPATION Senna (Senokot Tab*) 1 tab PO DAILY [facility] Last Admin: 10/12/18 10:45 Dose: Not Given Sodium Biphosphate/Sodium Phosphate (Fleet Enema*) 1 bottle [place] DAILY PRN PRN Reason: CONSTIPATION Last Admin: 10/11/18 22:45 Dose: 1 bottle Vital Signs - 8 hr 10/12/18 10/12/18 11:03 16:17 Temperature 97.7 F 97.9 F Pulse Rate 92 79 Respiratory 18 18 Rate Blood Pressure 127/83 122/76 (mmHg) O2 Sat by Pulse 81 100 Oximetry Oxygen Devices in Use Now: Nasal Cannula Result Diagrams: 10/12/18 07:23 10/12/18 07:23 Assess/Plan/Problems-Billing Assessment: - Patient Problems (1) Constipation Current Visit: Yes Status: Acute Code(s): K59.00 - CONSTIPATION, UNSPECIFIED SNOMED Code(s): 29576711 Comment: -Ordered soap suds enema and reordered Golytley as discussed -To discuss appropriate imaging with radiologist once constipation and abd distention resolves to better image abd/pelvic CT -Consider GI consult in AM? (2) Pleural effusion Current Visit: Yes Status: Acute Code(s): J90 - PLEURAL EFFUSION, NOT ELSEWHERE CLASSIFIED SNOMED Code(s): 10456144 Comment: #BL pleural effusions: -Unclear cause -Check BNP as add on to previous labs already drawn and re-draw tomorrow -2D echo ordered -Maybe the reason why pt was hypoxic w/frequent PACs? Possible CHF?? (3) Left leg DVT Current Visit: Yes Status: Acute Code(s): I82.402 - ACUTE EMBOLISM AND THOMBOS UNSP DEEP VEINS OF L LOW EXTREM SNOMED Code(s): 678136807 Comment: -Continue DVT prophylaxis for now until above evaluation is complete -Please see discussion above (4) Hypothyroidism Current Visit: Yes Status: Acute Code(s): E03.9 - HYPOTHYROIDISM, UNSPECIFIED SNOMED Code(s): 02928562 Comment: -Per Dr. Husain, his plan is to incres the dose to 50 ug next week -Continue current regimen at this time (5) DVT prophylaxis Current Visit: Yes Status: Acute Code(s): ZMK1921 - SNOMED Code(s): 790648390 Comment: -Continue Heparin SQ as discussed Status and Disposition: -For PT eval
[2018-10-13] MEDS: Levothyroxine TAB* 25 MCG TAB PO SCH (05:43)
[2018-10-13] MEDS: NS 0.9% 1000 ML* 1,000 ML IV SCH (05:44)
[2018-10-13 07:15] LABS: ABS Basophils 0 10^3/ul (0-0.2); ABS Eosinophils 0.1 10^3/ul (0-0.6); ABS Lymphocytes 0.9 10^3/ul (1.0-4.8); ABS Monocytes 0.5 10^3/ul (0-0.8); ABS Neutrophils 4.5 10^3/ul (1.5-7.7); ABS Nucleated RBC 0 10^3/ul; Eosinophil % 1.2 %; Hematocrit 33 % (35-47); Hemoglobin 10.8 g/dl (12.0-16.0); Lymphocyte % 14.8 %; Mean Corpuscular HGB Conc 33 g/dl (31-36); Mean Corpuscular Hemoglobin 31 pg (27-31); Mean Corpuscular Volume 94 fL (80-97); Mean Platelet Volume 7.7 fL (7.4-10.4); Nucleated Red Blood Cells % 0; Platelet Count 182 10^3/ul (150-450); Red Blood Count 3.52 10^6/ul (4.00-5.40); Red Cell Distribution Width 16 % (10.5-15); White Blood Count 5.9 10^3/ul (3.5-10.8)
[2018-10-13 07:36] LABS: BUN/Creatinine Ratio 27.5 (8-20); Calcium 8.3 mg/dL (8.6-10.3); EGFR Non-African American 68.2 (>60); Potassium 3.2 mmol/L (3.5-5.0)
[2018-10-13] MEDS ORDERED: Potassium Chlor TAB* 20 MEQ TAB.ER PO STA (08:18)
[2018-10-13] MEDS: Heparin VIAL(*) 5000 UNITS/ML VIAL (FIVE THOUSAND) SUBCUT SCH ×2 (10:03→21:26)
[2018-10-13] MEDS: Senna TAB PO SCH (10:03)
[2018-10-13] MEDS: Docusate CAP* 100 MG PO SCH (10:03)
[2018-10-13] MEDS ORDERED: PEG 3000 GI LAVAGE* 1 GALLON PO ONE (13:57)
[2018-10-13] MEDS ORDERED: Al Hydrox/Mg Hydrox/Simet LIQ* 30 ML UDC PO PRN (13:58)
[2018-10-13] MEDS: CMC:Pantoprazole TAB (NF) 40 MG TAB PO SCH (16:06)
[2018-10-13] MEDS: Cyanocobalamin TAB* 500 MCG SCH (16:07)
[2018-10-13] MEDS ORDERED: Furosemide IV* 10 MG/ML 2 ML VIAL (20 MG) IV ONE (16:32)
--- NOTE | 2018-10-13 16:35 | PN ---
Subjective Date of Service: 10/13/18 Interval History: Pt seen and examined. Meds and labs reviewed. CC: N/A. Pt mentions she feels better after moving her bowels with Golytely and still having brown stools that has not cleared up yet. Complains of dyspepsia. ROS: Denied FUENTES/dizziness, F/C, N/V, CP, SOB, increased cough, sputum production , abd pain, diarrhea, constipation, dysuria, myalgias, arthralgias, throat pain , and new skin lesions. The rest of the 14 point ROS are unremarkable. PHYSICAL EXAM: GEN APPEARANCE: Awake, not in acute distress HEENT: NC/AT, PERRLA, moist oral mucosa, (-) throat erythema NECK: Soft, supple, (-) cervical LAD, (-)JVD HEART: S1S2 WNL, RRR, No MRG CHEST: CTA, BL, GAE, No W/R/R ABD: Soft, (+)Distended/NT, NABS 4x Q EXT: No C/C/LLE edema +1 SKIN: Warm to touch PSYCH: No active psychosis, hallucinations, depression, SI/HI Objective Active Medications: Al Hydrox/Mg Hydrox/Simethicone (Maalox Plus*) 30 ml PO Q4H PRN PRN Reason: DYSPEPSIA Cyanocobalamin (Vitamin B12 Tab*) 1,000 mcg .SEE ORDER Q48H [facility] Last Admin: 10/13/18 16:07 Dose: 1,000 mcg Docusate Sodium (Colace Cap*) 100 mg PO DAILY [facility] Last Admin: 10/13/18 10:03 Dose: Not Given Heparin Sodium (Porcine) (Heparin Vial(*)) 5,000 units SUBCUT Q12HR [facility] Last Admin: 10/13/18 10:03 Dose: 5,000 units Levothyroxine Sodium (Synthroid Tab*) 25 mcg PO DAILY@0600 [facility] Last Admin: 10/13/18 05:43 Dose: 25 mcg Pantoprazole Sodium (Protonix Tab (Nf)) 40 mg PO DAILY [facility] Last Admin: 10/13/18 16:06 Dose: 40 mg Polyethylene Glycol/Electrolytes (Miralax*) 17 gm PO DAILY PRN PRN Reason: CONSTIPATION Senna (Senokot Tab*) 1 tab PO DAILY [facility] Last Admin: 10/13/18 10:03 Dose: Not Given Sodium Biphosphate/Sodium Phosphate (Fleet Enema*) 1 bottle [place] DAILY PRN PRN Reason: CONSTIPATION Last Admin: 10/11/18 22:45 Dose: 1 bottle Vital Signs - 8 hr 10/13/18 10/13/18 11:39 14:58 Temperature 98.1 F 98.3 F Pulse Rate 108 61 Respiratory 18 14 Rate Blood Pressure 96/77 116/66 (mmHg) O2 Sat by Pulse 91 96 Oximetry Oxygen Devices in Use Now: Nasal Cannula Result Diagrams: 10/13/18 07:04 10/13/18 07:04 Assess/Plan/Problems-Billing Assessment: - Patient Problems (1) Constipation Current Visit: Yes Status: Acute Code(s): K59.00 - CONSTIPATION, UNSPECIFIED SNOMED Code(s): 10473616 Comment: -Reordered one more round of Golytley given persistent abd distention -Will re-check repeat abd X-ray in AM to see how much of the constipation has improved radiologically -To discuss appropriate CT imaging with radiologist once constipation and abd distention resolves to better image abd/pelvic CT in order to further evaluate venous system of abdominal and pelvic area (please see my note yesterday for further context) to further determine if anticoagulation of known LLE DVT should proceed. -Consider GI consult in AM if abdominal imaging is still showing significant constipation (2) Pleural effusion Current Visit: Yes Status: Acute Code(s): J90 - PLEURAL EFFUSION, NOT ELSEWHERE CLASSIFIED SNOMED Code(s): 97601290 Comment: #BL pleural effusions: -Unclear cause; diagnosis of CHF by clinical criteria is equivocal although still possible; please see discussion below -BNP only mildly elevated and may be due to reported pulmonary HTN by Dr. Adkins vs. development of true fluid overload given known frequent PACs; No JVD on my exam -Awaiting 2D echo -Maybe the reason why pt was hypoxic w/frequent PACs? Possible CHF?? -Possible cause of hypoxia in outpatient? -Will give 1x dose of low dose lasix until more data available (3) Dyspepsia Current Visit: Yes Status: Acute Code(s): R10.13 - EPIGASTRIC PAIN SNOMED Code(s): 018993970 Comment: -Pt reports that some instances of some abd discomfort is perceived by her to be followed by some SOB -Possible that pt may have GERD, although pt does not report sour sensation at the back of throat early in AM -Possible reflux with aspiration as an explanation for hypoxia as outpatient and perceived SOB on top of pulmonary HTN? Pt being evaluated for CHF or valvular abnormalities as discussed -For speech eval -Will place pt on Pantoprazole as well as Maalox Plus (4) PAC (premature atrial contraction) Current Visit: Yes Status: Acute Code(s): I49.1 - ATRIAL PREMATURE DEPOLARIZATION SNOMED Code(s): 486597820 Comment: #Frequent PACs: -Pt is otherwise asymptomatic -Pt being assessed for possible CHF although clinical criteria is hard to meet given pt does not walk significantly and reports no orthopnea -Could be driven by known hypothyroidism causing constipation in the setting of known pulmonary HTN??? -Awaiting 2D echo result -Consider touching base with Dr. Adkins and/or Cardiology service once above data is reviewed (5) Left leg DVT Current Visit: Yes Status: Acute Code(s): I82.402 - ACUTE EMBOLISM AND THOMBOS UNSP DEEP VEINS OF L LOW EXTREM SNOMED Code(s): 293689292 Comment: -Continue DVT prophylaxis for now until above evaluation is complete -Please see discussion above and my note from yesterday for details as to why pt not on full anticoagulation -Pt R/O for PE w/CTA of Chest yesterday (6) Hypothyroidism Current Visit: Yes Status: Acute Code(s): E03.9 - HYPOTHYROIDISM, UNSPECIFIED SNOMED Code(s): 53913568 Comment: -Per Dr. Husain, his plan is to incres the dose to 50 ug next week -Continue current regimen at this time (7) DVT prophylaxis Current Visit: Yes Status: Acute Code(s): WOJ0405 - SNOMED Code(s): 359805295 Comment: -Continue Heparin SQ as discussed Status and Disposition: -Appreciate PT eval -D/C Home w/PT when ready
[2018-10-14] MEDS: Levothyroxine TAB* 25 MCG TAB PO SCH (05:56)
[2018-10-14 07:35] LABS: ABS Basophils 0 10^3/ul (0-0.2); ABS Eosinophils 0.2 10^3/ul (0-0.6); ABS Lymphocytes 1.3 10^3/ul (1.0-4.8); ABS Monocytes 0.7 10^3/ul (0-0.8); ABS Neutrophils 3.8 10^3/ul (1.5-7.7); ABS Nucleated RBC 0 10^3/ul; Hematocrit 33 % (35-47); Hemoglobin 10.9 g/dl (12.0-16.0); Lymphocyte % 21.1 %; Mean Corpuscular HGB Conc 34 g/dl (31-36); Mean Corpuscular Hemoglobin 31 pg (27-31); Mean Corpuscular Volume 93 fL (80-97); Mean Platelet Volume 8.7 fL (7.4-10.4); Nucleated Red Blood Cells % 0; Platelet Count 194 10^3/ul (150-450); Red Blood Count 3.51 10^6/ul (4.00-5.40); Red Cell Distribution Width 15 % (10.5-15); White Blood Count 6.1 10^3/ul (3.5-10.8)
[2018-10-14 07:46] LABS: BUN/Creatinine Ratio 18.1 (8-20); Calcium 7.9 mg/dL (8.6-10.3); Magnesium 1.6 mg/dL (1.9-2.7); Phosphorus 2.1 mg/dL (2.5-5.0); Potassium 3.1 mmol/L (3.5-5.0)
[2018-10-14] MEDS: Senna TAB PO SCH (08:58)
[2018-10-14] MEDS: Heparin VIAL(*) 5000 UNITS/ML VIAL (FIVE THOUSAND) SUBCUT SCH ×2 (08:58→21:23)
[2018-10-14] MEDS: CMC:Pantoprazole TAB (NF) 40 MG TAB PO SCH (08:59)
--- NOTE | 2018-10-14 09:04 | ECHO ---
Patient: PATIENCE SRIVASTAVA [facility] Rec#: [id number] : 1935 Date: 10/14/2018 Age: 83y Height: 137.16 cm / 54.0 in Weight: 40.82 kg / 90.0 lbs Sex: F BSA: 1.23 Room#: 421 Admit Date#: 10/12/2018 Type: Inpatient Referring: Reji Connolly Reading: Leonardo Hayes MD Retail Representative: Michelle Merrill RDCS CC: Keith Adkins MD CC: Felix Husain MD Transthoracic Echocardiogram Indication: Pleural Effusion// Respiratory Abnormality BP: 135/72 HR: 65 Rhythm: NSR Findings History: PACs,DVT. Technical Comments: The study quality is good. Completed at 0825. Left Ventricle: The left ventricular chamber size is decreased. Global left ventricular wall motion and contractility are within normal limits. There is normal left ventricular systolic function. The estimated ejection fraction is 55-60%. Abnormal left ventricular diastolic function is observed. Left Atrium: The left atrial cavity size is abnormally small. Right Ventricle: The right ventricular cavity size is normal. The right ventricular global systolic function is normal. Right Atrium: The right atrial cavity size is normal. Aortic Valve: The aortic valve is trileaflet. There is moderate aortic regurgitation. There is no evidence of aortic stenosis. Mitral Valve: The mitral valve leaflets appear normal. There is a trace of mitral regurgitation. There is no evidence of mitral stenosis. Tricuspid Valve: The tricuspid valve leaflets are normal. There is moderate tricuspid regurgitation. The right ventricular systolic pressure is estimated to be 45-50 mmHg. There is evidence of moderate pulmonary hypertension. There is no tricuspid stenosis. Pulmonic Valve: The pulmonic valve appears normal. There is no evidence of pulmonic regurgitation. There is no pulmonic stenosis. Pericardium: The pericardium appears normal. Aorta: There is no dilatation of the ascending aorta. There is no dilatation of the aortic arch. There is no dilation of the aortic root. Pulmonary Artery: The main pulmonary artery appears normal. Venous: The venous system is not well visualized. Conclusions Global left ventricular wall motion and contractility are within normal limits. There is normal left ventricular systolic function. The estimated ejection fraction is 55-60%. The right ventricular global systolic function is normal. There is moderate aortic regurgitation. There is no evidence of aortic stenosis. There is a trace of mitral regurgitation. There is moderate tricuspid regurgitation. There is evidence of moderate pulmonary hypertension. The right ventricular systolic pressure is estimated to be 45-50 mmHg. The pericardium appears normal. Compare to study of 06/08/10, the LV function is the same. The degreee of TR and Pulm HTN are less Measurements Name Value Normal Range RVIDd (AP) 2D 2 cm (0.9 - 2.6) RVDdMajor (2D) 3.3 cm (2.2 - 4.4) RAd ISD 4CH 4.2 cm (3.4 - 4.9) RA (A4C)W 2.9 cm (2.9 - 4.6) IVSd (2D) 0.9 cm (0.6 - 1) LVPWd (2D) 0.7 cm (0.6 - 1) LVIDd (2D) 2.3 cm (3.6 - 5.4) LVIDs (2D) 1.7 cm - LV FS (2D) 26 % (25 - 45) Aortic Annulus 1.7 cm (1.4 - 2.6) Ao root diameter (2D) 3.2 cm (2.1 - 3.5) Ascending Ao 3.1 cm (2.1 - 3.4) Aortic arch 2.2 cm (1.8 - 3.4) Descending Ao 0.3 cm - LA dimension (AP) 2D 2.2 cm (2.3 - 3.8) LAd ISD 4CH 5.3 cm (2.9 - 5.3) LA ISD 4CH W 3 cm (2.5 - 4.5) Name Value Normal Range LA ESV SP 4CH (A/L) 30 ml - LA ESV SP 2CH (A/L) 27 ml - LA ESV BP (A/L) 30 ml - LA ESV BP (A/L) index 24.1 ml/m2 - LA ESV SP 4CH (MOD) 29 ml - LA ESV SP 2CH (MOD) 25 ml - Name Value Normal Range MV E-wave Vmax 0.8 m/sec - MV deceleration time 278 msec - MV A-wave Vmax 1.02 m/sec - MV E:A ratio 0.82 ratio - LV septal e' Vmax 0.08 m/sec - LV lateral e' Vmax 0.07 m/sec - LV E:e' septal ratio 10 ratio - LV E:e' lateral ratio 11.42 ratio - Name Value Normal Range AV Vmax 1.2 m/sec - AV VTI 32.1 cm - AV peak gradient 5.54 mmHg - AV mean gradient 2.43 mmHg - LVOT Vmax 1 m/sec - LVOT VTI 20.6 cm - LVOT peak gradient 3.81 mmHg - LVOT mean gradient 1.82 mmHg - AR PHT 474 msec - AR peak gradient 71.04 mmHg - Name Value Normal Range TR Vmax 3.1 m/sec - TR peak gradient 40 mmHg - RAP 8 mmHg - RVSP 48 mmHg - Name Value Normal Range PV Vmax 0.5 m/sec - PV peak gradient 1.14 mmHg -
[2018-10-14] MEDS: Docusate CAP* 100 MG PO SCH (09:20)
[2018-10-14] MEDS ORDERED: Magnesium Sulfate IV* 3 GM in NS 0.9% 100 ML* 100 ML IVPB ONE (12:54)
[2018-10-14] MEDS: Potassium Chloride LIQUID* 20 MEQ PACKET PO SCH ×2 (13:37→17:10)
[2018-10-14 16:38] LABS: Urine Appearance Clear; Urine Bacteria Absent (Absent); Urine Bilirubin Negative (Negative); Urine Blood 1+ (Negative); Urine Color Yellow; Urine Glucose Negative (Negative); Urine Ketones Trace (Negative); Urine Nitrite Negative (Negative); Urine Protein Negative (Negative); Urine Red Blood Cell Trace(0-2/hpf) (Absent); Urine Specific Gravity 1.011 (1.010-1.030); Urine Urobilinogen Negative (Negative); Urine White Blood Cell Trace(0-5/hpf) (Absent)
--- NOTE | 2018-10-14 20:09 | PN ---
Subjective Date of Service: 10/14/18 Interval History: Many liquid BMs. KUB with improvement in stool burden ECHO with diastolic dysfunction and mod pHTN. Denies abdominal pain, nausea or vomiting. Objective Active Medications: Al Hydrox/Mg Hydrox/Simethicone (Maalox Plus*) 30 ml PO Q4H PRN PRN Reason: DYSPEPSIA Cyanocobalamin (Vitamin B12 Tab*) 1,000 mcg .SEE ORDER Q48H [facility] Last Admin: 10/13/18 16:07 Dose: 1,000 mcg Docusate Sodium (Colace Cap*) 100 mg PO DAILY [facility] Last Admin: 10/14/18 09:20 Dose: Not Given Heparin Sodium (Porcine) (Heparin Vial(*)) 5,000 units SUBCUT Q12HR [facility] Last Admin: 10/14/18 08:58 Dose: 5,000 units Lactulose (Lactulose*) 30 ml PO TID [facility] Last Admin: 10/14/18 19:01 Dose: 30 ml Levothyroxine Sodium (Synthroid Tab*) 25 mcg PO DAILY@0600 [facility] Last Admin: 10/14/18 05:56 Dose: 25 mcg Pantoprazole Sodium (Protonix Tab (Nf)) 40 mg PO DAILY [facility] Last Admin: 10/14/18 08:59 Dose: 40 mg Polyethylene Glycol/Electrolytes (Miralax*) 17 gm PO DAILY PRN PRN Reason: CONSTIPATION Senna (Senokot Tab*) 1 tab PO DAILY [facility] Last Admin: 10/14/18 08:58 Dose: 1 tab Sodium Biphosphate/Sodium Phosphate (Fleet Enema*) 1 bottle [place] DAILY PRN PRN Reason: CONSTIPATION Last Admin: 10/11/18 22:45 Dose: 1 bottle Vital Signs - 8 hr 10/14/18 10/14/18 14:18 19:06 Temperature 97.3 F 97.8 F Pulse Rate 57 69 Respiratory 20 18 Rate Blood Pressure 140/64 121/67 (mmHg) O2 Sat by Pulse 100 98 Oximetry Oxygen Devices in Use Now: Nasal Cannula Appearance: NAD Eyes: No Scleral Icterus, PERRLA Neck: NL Appearance and Movements; NL JVP, Trachea Midline Respiratory: Symmetrical Chest Expansion and Respiratory Effort, - - severe scoliosis, reduced left base. Cardiovascular: NL Sounds; No Murmurs; No JVD, RRR Abdominal: - - soft, nontender, slightly distended. Extremities: - - 2+ edema b/l Skin: No Rash or Ulcers Neurological: Alert and Oriented x 3, NL Sensation Nutrition: Taking PO's Result Diagrams: 10/14/18 06:51 10/14/18 06:51 Additional Lab and Data: Laboratory Results - last 24 hr 10/14/18 10/14/18 10/14/18 06:51 06:51 16:10 WBC 6.1 RBC 3.51 L Hgb 10.9 L Hct 33 L MCV 93 MCH 31 MCHC 34 RDW 15 Plt Count 194 MPV 8.7 Neut % (Auto) 63.2 Lymph % (Auto) 21.1 Williams % (Auto) 10.9 Eos % (Auto) 4.0 Baso % (Auto) 0.8 Absolute Neuts (auto) 3.8 Absolute Lymphs (auto) 1.3 Absolute Monos (auto) 0.7 Absolute Eos (auto) 0.2 Absolute Basos (auto) 0 Absolute Nucleated RBC 0 Nucleated RBC % 0 Sodium 139 Potassium 3.1 L Chloride 102 Carbon Dioxide 30 Anion Gap 7 BUN 13 Creatinine 0.72 Est GFR ( Amer) 93.2 Est GFR (Non-Af Amer) 77.0 BUN/Creatinine Ratio 18.1 Glucose 86 Calcium 7.9 L Phosphorus 2.1 L Magnesium 1.6 L Urine Color Yellow Urine Appearance Clear Urine pH 5.0 Ur Specific [place] 1.011 Urine Protein Negative Urine Ketones Trace A Urine Blood 1+ A Urine Nitrate Negative Urine Bilirubin Negative Urine Urobilinogen Negative Ur Leukocyte Esterase Negative Urine WBC (Auto) Trace(0-5/hpf) Urine RBC (Auto) Trace(0-2/hpf) Ur Squamous Epith Cells Present A Urine Bacteria Absent Urine Glucose Negative Assess/Plan/Problems-Billing Assessment: 83 yo female PMH severe scoliosis, pernicious anemia, recent hypothroid dx, recent left peroneal vein DVT, several months of constipation p/w constipation improved with 4L x two of golytely. - Patient Problems (1) Constipation Current Visit: Yes Status: Acute Code(s): K59.00 - CONSTIPATION, UNSPECIFIED SNOMED Code(s): 68286656 Comment: -KUB with cleared colon, still with stool in small bowel with some mild dilation and air fluid levels. transition to lactulose TID. Repeat KUB in AM. Consider CT abd/pelvis with PO contrast if not continued improvement or any N/ V. - continue senna, colace, miralax. Of note she is charted as declining some of these! s/p 2 rounds of golytley. (2) Diastolic dysfunction Current Visit: Yes Status: Acute Code(s): I51.9 - HEART DISEASE, UNSPECIFIED SNOMED Code(s): 7904469 (3) Hypothyroidism Current Visit: Yes Status: Acute Code(s): E03.9 - HYPOTHYROIDISM, UNSPECIFIED SNOMED Code(s): 26590498 Comment: -Per Dr. Husain, his plan is to incres the dose to 50 ug next week -Continue current regimen at this time (4) Left leg DVT Current Visit: Yes Status: Acute Code(s): I82.402 - ACUTE EMBOLISM AND THOMBOS UNSP DEEP VEINS OF L LOW EXTREM SNOMED Code(s): 222391295 Comment: - Continue DVT prophylaxis for now until above evaluation is complete - Reportely PCP plan to potentially start a/c on 10/17/17 (reasoning that she may need manual disimpaction). Reasonable to wait few days given pt and family leery of it to begin with. - no e/o PE on CTA of Chest 10/12/17 (5) Pleural effusion Current Visit: Yes Status: Acute Code(s): J90 - PLEURAL EFFUSION, NOT ELSEWHERE CLASSIFIED SNOMED Code(s): 08400826 Comment: #BL pleural effusions likely 2/2 diastolic CHF as seen on ECHO 10/14/18. - b/l edema reportedly worse, possibly in setting of volume (8L Golytley last 2 days) - start lasix 20mg po daily Status and Disposition: likely d/c tomorrow
[2018-10-15] MEDS: Levothyroxine TAB* 25 MCG TAB PO SCH (05:38)
[2018-10-15 07:27] LABS: BUN/Creatinine Ratio 15.4 (8-20); Calcium 7.9 mg/dL (8.6-10.3); EGFR Non-African American 86.6 (>60); Potassium 3.3 mmol/L (3.5-5.0)
[2018-10-15] MEDS: Furosemide TAB* 20 MG PO SCH (09:53)
[2018-10-15] MEDS: CMC:Pantoprazole TAB (NF) 40 MG TAB PO SCH (09:54)
[2018-10-15] MEDS: Docusate CAP* 100 MG PO SCH (09:54)
[2018-10-15] MEDS: Heparin VIAL(*) 5000 UNITS/ML VIAL (FIVE THOUSAND) SUBCUT SCH ×2 (09:54→20:28)
[2018-10-15] MEDS: Senna TAB PO SCH (09:54)
[2018-10-15] MEDS ORDERED: Potassium Chlor TAB* 20 MEQ TAB.ER PO ONE (10:34)
--- NOTE | 2018-10-15 10:43 | PN ---
Subjective Date of Service: 10/15/18 Interval History: Pt states she is feeling ok. She denies any pain or SOB. She has been moving her bowels since yesterday afternoon. She states her daughter wants to talk with me, I informed the patient that when her daughter arrives to have her nurse page me to the room. Objective Active Medications: Al Hydrox/Mg Hydrox/Simethicone (Maalox Plus*) 30 ml PO Q4H PRN PRN Reason: DYSPEPSIA Cyanocobalamin (Vitamin B12 Tab*) 1,000 mcg .SEE ORDER Q48H [facility] Last Admin: 10/13/18 16:07 Dose: 1,000 mcg Docusate Sodium (Colace Cap*) 100 mg PO DAILY [facility] Last Admin: 10/15/18 09:54 Dose: 100 mg Furosemide (Lasix Tab*) 20 mg PO DAILY [facility] Last Admin: 10/15/18 09:53 Dose: 20 mg Heparin Sodium (Porcine) (Heparin Vial(*)) 5,000 units SUBCUT Q12HR [facility] Last Admin: 10/15/18 09:54 Dose: 5,000 units Lactulose (Lactulose*) 30 ml PO TID [facility] Last Admin: 10/15/18 09:53 Dose: 30 ml Levothyroxine Sodium (Synthroid Tab*) 25 mcg PO DAILY@0600 [facility] Last Admin: 10/15/18 05:38 Dose: 25 mcg Pantoprazole Sodium (Protonix Tab (Nf)) 40 mg PO DAILY [facility] Last Admin: 10/15/18 09:54 Dose: 40 mg Polyethylene Glycol/Electrolytes (Miralax*) 17 gm PO DAILY PRN PRN Reason: CONSTIPATION Potassium Chloride (Klor Con Er Tab*) 40 meq PO ONCE ONE Stop: 10/15/18 10:35 Senna (Senokot Tab*) 1 tab PO DAILY [facility] Last Admin: 10/15/18 09:54 Dose: 1 tab Vital Signs - 8 hr 10/15/18 02:57 Temperature 97.6 F Pulse Rate 68 Respiratory 18 Rate Blood Pressure 137/65 (mmHg) O2 Sat by Pulse 99 Oximetry Oxygen Devices in Use Now: Nasal Cannula Appearance: Elderly female lying in bed, NAD Eyes: No Scleral Icterus Ears/Nose/Mouth/Throat: Mucous Membranes Moist Respiratory: Symmetrical Chest Expansion and Respiratory Effort, Clear to Auscultation Cardiovascular: NL Sounds; No Murmurs; No JVD, RRR, - - 3+ LE edema Abdominal: NL Sounds; No Tenderness; No Distention Extremities: No Clubbing, Cyanosis Skin: No Nodules or Sclerosis Neurological: - - alert, she seems somewhat confused. Result Diagrams: 10/14/18 06:51 10/15/18 06:41 Additional Lab and Data: Laboratory Results - last 24 hr 10/14/18 10/14/18 10/14/18 06:51 06:51 16:10 WBC 6.1 RBC 3.51 L Hgb 10.9 L Hct 33 L MCV 93 MCH 31 MCHC 34 RDW 15 Plt Count 194 MPV 8.7 Neut % (Auto) 63.2 Lymph % (Auto) 21.1 [place] % (Auto) 10.9 Eos % (Auto) 4.0 Baso % (Auto) 0.8 Absolute Neuts (auto) 3.8 Absolute Lymphs (auto) 1.3 Absolute Monos (auto) 0.7 Absolute Eos (auto) 0.2 Absolute Basos (auto) 0 Absolute Nucleated RBC 0 Nucleated RBC % 0 Sodium 139 Potassium 3.1 L Chloride 102 Carbon Dioxide 30 Anion Gap 7 BUN 13 Creatinine 0.72 Est GFR ( Amer) 93.2 Est GFR (Non-Af Amer) 77.0 BUN/Creatinine Ratio 18.1 Glucose 86 Calcium 7.9 L Phosphorus 2.1 L Magnesium 1.6 L Urine Color Yellow Urine Appearance Clear Urine pH 5.0 Ur Specific [place] 1.011 Urine Protein Negative Urine Ketones Trace A Urine Blood 1+ A Urine Nitrate Negative Urine Bilirubin Negative Urine Urobilinogen Negative Ur Leukocyte Esterase Negative Urine WBC (Auto) Trace(0-5/hpf) Urine RBC (Auto) Trace(0-2/hpf) Ur Squamous Epith Cells Present A Urine Bacteria Absent Urine Glucose Negative Assess/Plan/Problems-Billing Ms Ceja is an 83 yo female with a PMH of severe scoliosis, pernicious anemia, recent hypothroid dx, recent left peroneal vein DVT and several months of constipation who p/w constipation. - Patient Problems (1) Constipation Current Visit: Yes Status: Acute Code(s): K59.00 - CONSTIPATION, UNSPECIFIED SNOMED Code(s): 52846888 Comment: Pt now having frequent loose BMs. Stop lactulose and monitor for continued BMs. AXR this AM shows ? paralytic ileus. ? if constipation was secondary to hypothryoidism. (2) Hypothyroidism Current Visit: Yes Status: Acute Code(s): E03.9 - HYPOTHYROIDISM, UNSPECIFIED SNOMED Code(s): 45987616 Comment: Pt recently diagnosed with hypothyroidism (TSH ~23). Continue synthroid 25mcg daily for now. Repeat TSH and free T4 in 4-6 weeks. (3) Left leg DVT Current Visit: Yes Status: Acute Code(s): I82.402 - ACUTE EMBOLISM AND THOMBOS UNSP DEEP VEINS OF L LOW EXTREM SNOMED Code(s): 404375473 Comment: Pt was diagnosed with a peroneal vein DVT on the L on 10/10/18. Repeat doppler today reveals resolution of the L LE DVT and no evidence of R DVT. (4) Pleural effusion Current Visit: Yes Status: Acute Code(s): J90 - PLEURAL EFFUSION, NOT ELSEWHERE CLASSIFIED SNOMED Code(s): 60239988 Comment: I suspect the pleural effusions and LE edema are likely secondary to diastolic CHF. Continue lasix 20mg daily. (5) DVT prophylaxis Current Visit: Yes Status: Acute Code(s): QAK4976 - SNOMED Code(s): 861678404 Comment: SQ heparin (6) Full code status Current Visit: Yes Status: Acute Code(s): Z78.9 - OTHER SPECIFIED HEALTH STATUS SNOMED Code(s): 067945576 Status and Disposition: likely d/c tomorrow
[2018-10-15] MEDS ORDERED: Potassium Chloride LIQUID* 20 MEQ PACKET PO ONE (13:15)
[2018-10-15] MEDS: Cyanocobalamin TAB* 500 MCG SCH (13:45)
[2018-10-16] MEDS: Levothyroxine TAB* 25 MCG TAB PO SCH (05:49)
[2018-10-16 06:54] LABS: Calcium 8.1 mg/dL (8.6-10.3); Magnesium 1.6 mg/dL (1.9-2.7); Potassium 3.2 mmol/L (3.5-5.0)
[2018-10-16 07:00] LABS: BUN/Creatinine Ratio 8.8 (8-20); EGFR Non-African American 82.2 (>60)
[2018-10-16] MEDS: Docusate CAP* 100 MG PO SCH (09:24)
[2018-10-16] MEDS: Heparin VIAL(*) 5000 UNITS/ML VIAL (FIVE THOUSAND) SUBCUT SCH (09:24)
[2018-10-16] MEDS: Senna TAB PO SCH (09:25)
[2018-10-16] MEDS: Furosemide TAB* 20 MG PO SCH (09:25)
[2018-10-16] MEDS: CMC:Pantoprazole TAB (NF) 40 MG TAB PO SCH (09:25)
[2018-10-16] MEDS ORDERED: Potassium Chloride LIQUID* 20 MEQ PACKET PO ONE (11:38)
[2018-10-16] MEDS ORDERED: Magnesium Sulfate 2 GM IV* 2 GM/50 ML BAG IVPB ONE (11:44)
[2018-10-16 13:17] VITALS: BP 129/68
--- NOTE | 2018-10-16 21:52 | DS ---
DISCHARGE SUMMARY: DATE OF ADMISSION: 10/11/18 DATE OF DISCHARGE: 10/16/18 PRIMARY CARE PROVIDER: Felix Husain MD OTHER PROVIDER: Dr. Adkins. ATTENDING PHYSICIAN: Ruth Jenkins MD * (DICTATED BY JARRETT LANDAVERDE) PRIMARY DIAGNOSES: 1. Acute diastolic heart failure. 2. Constipation. 3. Peroneal deep vein thrombosis. SECONDARY DIAGNOSES: 1. Vitamin B12 deficiency. 2. Hypothyroidism. 3. Scoliosis. 4. Osteoporosis. STUDIES WHILE IN THE HOSPITAL: Abdominal x-ray on 10/11/18, impression: Radiographic findings are consistent with fecal impaction. CTA of the chest on 10/12/18, impression: No CT evidence of pulmonary embolism , [id number] bibasilar pleural effusions with adjacent compressive atelectasis of the lower lobes. Transthoracic echocardiogram on 10/12/18, conclusion: Globular left ventricular wall motion and contractility are within normal limits. There is a normal left ventricular systolic function. The estimated ejection fraction is 55% to 60%. The right ventricular globular systolic function is normal. There is moderate aortic regurgitation. There is no evidence of aortic stenosis. There is a trace of mitral regurgitation. There is moderate tricuspid regurgitation. There is evidence of moderate pulmonary hypertension. The right ventricular systolic pressure is estimated to be 45 to 50 mmHg. The pericardium appears normal, compared to study of 06/08/10. The LV function is the same. The degree of TR and pulm hypertension are less. Abdominal x-ray from 10/14/18, impression: Stool in the rectal wall appears to be no longer present, moderately distended loops of small bowel with air-fluid levels are noted. Abdominal x-ray from 10/15/18, impression: Findings suggestive of paralytic ileus, less likely a partial obstruction, unchanged. Bilateral lower extremity venous Doppler ultrasound from 10/15/18, impression: No evidence of deep venous thrombosis of either lower extremity is present. Previously described peroneal vein thrombosis is resolved. DISCHARGE MEDICATIONS: Home medications: 1. Levothyroxine 25 mcg p.o. daily. 2. Cyanocobalamin 1000 mcg tablet sublingual. New home medications: 1. Potassium chloride liquid 40 mEq p.o. daily x5 days. 2. Magnesium oxide tab 400 mg p.o. b.i.d. x5 days. 3. Furosemide tab 20 mg p.o. daily x5 days. HISTORY OF PRESENT ILLNESS/HOSPITAL COURSE: Ms. Ceja is an 83-year-old female with past medical history of vitamin B12 deficiency, scoliosis, osteoporosis. She was recently diagnosed with hypothyroidism and is on levothyroxine 25 mcg. The patient was evaluated in the ER at the suggestion of her primary care physician due to constipation since September 29, 2018, reporting that she had relief of constipation with 1 enema since that time, but has not had any other bowel movements. She was also diagnosed with a DVT by ultrasound 1 day prior to admission for which she was not placed on anticoagulation. There is some confusion about the management of the DVT as the patient and her daughter said that it was decided that she not be put on anticoagulation, while discussion with Dr. Adkins was that he had the impression that the patient would be anticoagulated in the future. The patient was admitted and evaluated for constipation. Constipation was treated with GoLYTELY, soap suds enemas, stool softeners, and manual disimpaction. Progress was checked regularly with abdominal x-rays. She eventually started having bowel movements. The patient also had bilateral lower extremity edema which was assessed with ultrasound and an echo was also ordered. Ultrasound revealed that the previous clot had resolved. Echo revealed moderate aortic regurgitation, tricuspid regurgitation and pulmonary hypertension. The patient's BNP was 212. Bilateral lower extremity edema was attributed to acute diastolic heart failure and was treated with Lasix. It is noted that the patient's potassium level was low as was her magnesium. Prior to discharge, she was given 2 g of magnesium IV and 60 mEq of oral potassium. She was then sent home with the medications as described above and it was recommended that she have repeat BMP after 5 days of potassium, Lasix and magnesium. Ms. Ceja is stable for discharge. Throughout her stay she was on 2L NC; she uses oxygen at home at 2L NC. The patient denies chest pain, change in SOB, headache, cough, wheeze, abdominal pain, nausea, vomiting, diarrhea, constipation, fever, chills, sweats, tiredness. PHYSICAL EXAMINATION: Vital Signs: Temperature 97.8 orally, heart rate is 63, respiratory rate 16, oxygen saturation 100% on 2 L of oxygen, blood pressure is 129/68. General: Ms. Ceja is a well-developed, well-nourished elderly woman, who is sitting up in a chair, in no acute distress. The patient has severe scoliosis which distorts thoracic and abdominal anatomy. HEENT: Visual blackwell grossly intact. Pupils equally round and reactive to light and accommodation. Extraocular movements intact. Hearing grossly intact. Oral mucosa is moist without lesions. Tongue midline. Neck: Trachea is at midline. Respiratory: Symmetrical chest expansion. No use of accessory muscles. Lungs are clear to auscultation bilaterally. No rhonchi, wheezes, or rubs. Cardiovascular: Regular rate and rhythm. S1, S2 noted. No murmurs, rubs, gallops. No JVD. Abdomen: Bowel sounds in all 4 quadrants. Abdomen is soft and nontender to palpation. No hepatosplenomegaly. Extremities: No clubbing or cyanosis. Bilateral lower extremities with 2+ pitting edema. Pedal pulses 2+ bilaterally. Negative Aracely's; without calf tenderness. DISCHARGE PLAN: Ms. Ceja will be discharged to home. ACTIVITY: As tolerated. DIET: Heart healthy, increased fiber. MEDICATIONS: As above. EDUCATION: -Follow up with Dr. Adkins regarding acute diastolic heart failure, sinus arrhythmia, h/o DVT. -Follow up with primary care physician regarding hypothyroidism, recent hospitalization, lab results, low potassium and low magnesium. -Daily weight -Continue Lasix 20 mg daily x5 days starting tomorrow; stop sooner if weight drops below admission weight of 82 lbs. -Continue potassium 40 mEq daily x5 days starting tomorrow. -Continue magnesium 400 mg b.i.d. daily x5 days starting tomorrow. -Recheck BMP in 5 days. -Return to the ER or the nearest hospital if you -experience any worsening of symptoms, shortness of breath, lightheadedness, dizziness, chest discomfort, high fevers, chills, night sweats, loss of consciousness, continued swelling in lower extremities, pain in lower extremities/calves, or any other worrisome signs or symptoms. This is a summarized report of a complex medical history and hospital stay. For further details, please see the entire medical record. TIME SPENT: Approximately 45 minutes was spent on this discharge, greater than half of that time spent [id number] with the patient discussing discharge plans and instructions. TIFFANY JACKSON, JARRETT [id number]/[facility] #: [id number] ZAHRA
== END 2018-10-16 14:00 | disposition home or self-care (01) | DRG 388 ==
LOC: ED 13:40 → MED 18:49 → OBSVTOIN 10-12 15:46
PROVIDERS: ADMIT Student in an Organized Health Care Education/Training Program; ATTEND Internal Medicine
DX: K56.41 Fecal impaction (principal); I50.31 Acute diastolic (congestive) heart failure; I82.432 Acute embolism and thrombosis of left popliteal vein; K56.0 Paralytic ileus; I27.20 Pulmonary hypertension, unspecified; I08.2 Rheumatic disorders of both aortic and tricuspid valves; E83.42 Hypomagnesemia; M41.9 Scoliosis, unspecified; E87.6 Hypokalemia; I49.1 Atrial premature depolarization; E53.8 Deficiency of other specified B group vitamins; E03.9 Hypothyroidism, unspecified; M81.0 Age-related osteoporosis without current pathological fracture; R10.13 Epigastric pain; Z79.899 Other long term (current) drug therapy; Z88.2 Allergy status to sulfonamides; Z88.8 Allergy status to other drugs, medicaments and biological substances; Z82.49 Family history of ischemic heart disease and other diseases of the circulatory system
CPT/HCPCS: 36415; 71275; 74018; 74019; 80048; 80053; 81003; 81015; 82565; 83735; 83880; 84100; 84520; 85025; 85610; 85730; 87086; 93306; 93970; 99284; A9270-GY; G8978-GP-CK; G8979-GP-CJ; J1644; J1940; J3475; Q9967

== ENCOUNTER 2019-11-20 14:45 | Emergency (ER) | payer MEDICARE, OTHER ==
--- NOTE | 2019-11-20 15:33 | UC ---
Respiratory Complaint HPI - HPI Summary HPI Summary: The patient is an 84-year-old female that was brought here for evaluation of cough and low pulse ox. She states that this morning she felt out of sorts. She has felt feverish and had chills. She has had worsening dyspnea over her baseline. She used to be on supplemental oxygen all the time however now just uses it at night. She has had nausea but no vomiting she denies any chest pain. She denies any nasal congestion or headache or myalgias. - History of Current Complaint Chief Complaint: UCGeneralIllness Stated Complaint: LOW 02, ELEVATED PULSE Time Seen by Provider: 11/20/19 15:07 Hx Obtained From: Patient Hx Last Menstrual Period: post Onset/Duration: Gradual Onset, Lasting Hours Timing: Constant Severity Initially: Moderate Severity Currently: Mild Pain Intensity: 0 Pain Scale Used: 0-10 Numeric Character: Cough: Nonproductive Aggravating Factors: Deep Breaths, Recumbent Position Alleviating Factors: Nothing Associated Signs And Symptoms: Positive: Dyspnea, Fever - dorian, Chills. Negative : Edema, URI, Nasal Congestion, Hoarseness, Sinus Discomfort - Allergies/Home Medications Allergies/Adverse Reactions: Allergies Allergy/AdvReac Type Severity Reaction Status Date / Time levofloxacin [From Levaquin] Allergy See Comment Verified 11/20/19 15:07 hydrocodone AdvReac Nausea Verified 11/20/19 15:07 hydromorphone [From Dilaudid] AdvReac Nausea Verified 11/20/19 15:07 Sulfa (Sulfonamide AdvReac Vomiting Verified 11/20/19 15:07 Antibiotics) sulfabenzamide AdvReac Vomiting Verified 11/20/19 15:07 sulfamethoxazole AdvReac Hallucinati Verified 11/20/19 15:07 [From Septra] ons trimethoprim [From Septra] AdvReac Hallucinati Verified 11/20/19 15:07 ons Home Medications: Home Medications Furosemide TAB* [Lasix TAB*] 20 mg PO DAILY PRN 11/20/19 [History Confirmed ] Saccharomyces Boulardii [Daily Probiotic] 250 mg PO DAILY 11/20/19 [History Confirmed 11/20/19] PMH/Surg Hx/FS Hx/Imm Hx Previously Healthy: Yes Endocrine History: Thyroid Disease Cardiovascular History: Congestive Heart Failure Respiratory History: Pneumonia Other History Of: Negative For: Anticoagulant Therapy - Surgical History Surgical History: Yes Surgery Procedure, Year, and Place: BILAT CATARACTS;. D&C X2;. [facility] 01/22/14; . TONSILLECTOMY; - Family History Known Family History: Positive: Diabetes - brother Negative: Hypertension - Social History Lives: Assisted Living Alcohol Use: None Alcohol Amount: wine 3 times per week Substance Use Type: Other Substance Use Comment - Amount & Last Used: cbd oil - approved by physician Smoking Status (MU): Never Smoked Tobacco Have You Smoked in the Last Year: No - Immunization History Most Recent Influenza Vaccination: 2018 Most Recent Pneumonia Vaccination: 5 years Review of Systems All Other Systems Reviewed And Are Negative: Yes Constitutional: Positive: Fever, Chills Skin: Positive: Bruising Eyes: Positive: Negative ENT: Positive: Negative Respiratory: Positive: Cough Cardiovascular: Positive: Negative Gastrointestinal: Positive: Nausea Genitourinary: Positive: Negative Motor: Positive: Negative Neurovascular: Positive: Negative Musculoskeletal: Positive: Negative Neurological/Mental Status: Positive: Negative Psychological: Positive: Negative Physical Exam Triage Information Reviewed: Yes Appearance: Well-Appearing, No Pain Distress, Well-Nourished Vital Signs: Initial Vital Signs Temp 100.3 F 11/20/19 14:56 Pulse 85 11/20/19 14:56 Resp 17 11/20/19 14:56 BP 152/88 11/20/19 14:56 Pulse Ox 100 11/20/19 14:56 Vital Signs Reviewed: Yes Eyes: Positive: Conjunctiva Clear ENT: Positive: Hearing grossly normal, Pharyngeal erythema, Nasal drainage, TMs normal, Uvula midline. Negative: Tonsillar swelling, Tonsillar exudate, Trismus , Muffled voice, Hoarse voice Neck: Positive: Supple, Nontender, No Lymphadenopathy Respiratory: Positive: No respiratory distress, No accessory muscle use, Crackles - Right base Cardiovascular: Positive: RRR, No Murmur Abdominal Exam: Normal Bowel Sounds: Positive: Present Musculoskeletal: Positive: ROM Intact, No Edema Neurological: Positive: Alert Psychological Exam: Normal Skin Exam: Normal Diagnostics - Radiology No standard instances Radiology Interpretation Completed By: Radiologist Summary of Radiographic Findings: NAD - EKG Cardiac Rate: NL Cardiac Rhythm: Sinus: Normal Ectopy: None ST Segment: Normal Re-Evaluation - Re-Evaluation First Eval Re-Evaluation Time: 16:34 Change: Improved - feels better Respiratory Course/Dx - Differential Dx/Diagnosis Provider Diagnosis: Viral URI with cough Discharge ED - Sign-Out/Discharge Documenting (check all that apply): Patient Departure All imaging exams completed and their final reports reviewed: No Studies - Discharge Plan Condition: Stable Disposition: HOME Patient Education Materials: Upper Respiratory Infection (ED) Additional Instructions: See your network technician tomorrow as planned To ER for new or worsening symptoms - Billing Disposition and Condition Condition: STABLE Disposition: Home
[2019-11-20 15:57] LABS: Influenza A Molecular Negative (Negative); Influenza B Molecular Negative (Negative)
[2019-11-20 16:41] VITALS: BP 136/63
== END 2019-11-20 17:00 | disposition home or self-care (01) ==
LOC: UCEAST 14:45
DX: J06.9 Acute upper respiratory infection, unspecified (principal); R05 Cough; I50.9 Heart failure, unspecified; R23.8 Other skin changes; R11.0 Nausea; Z88.1 Allergy status to other antibiotic agents; Z88.5 Allergy status to narcotic agent; Z88.2 Allergy status to sulfonamides
CPT/HCPCS: 71046; 93005; 99212; G0463

== ENCOUNTER 2023-05-08 12:51 | Inpatient (IN) ==
[2023-05-08 14:22] LABS: ABS Basophils 0.1 10^3/uL (0.0-0.1); ABS Eosinophils 0.4 10^3/uL (0.0-0.5); ABS Lymphocytes 0.9 10^3/uL (1.0-4.8); ABS Neutrophils 5.9 10^3/uL (1.5-7.6); ABS Nucleated RBC 0.01 10^3/ul; Eosinophil % 4.6 %; Hematocrit 37.1 % (35-45); Hemoglobin 12.4 g/dL (11.5-14.3); Lymphocyte % 10.7 %; Mean Corpuscular Hemoglobin 32.2 pg (27-33); Mean Corpuscular Hgb Conc 33.4 g/dL (31-36); Mean Corpuscular Volume 96.2 fL (80-97); Mean Platelet Volume 8.6 fL (7.5-11.2); Nucleated Red Blood Cells % 0.2 /100 WBC (0.0-0.4); Platelet Count 190 10^3/uL (150-450); Red Blood Count 3.85 10^6/uL (3.63-4.92); Red Cell Distribution Width 17.1 % (12-17); White Blood Count 8.2 10^3/uL (3.8-11.8)
[2023-05-08 14:36] LABS: ALT 11 U/L (7-52); AST 15 U/L (13-39); Albumin 3.4 g/dL (3.2-5.2); Albumin/Globulin Ratio 1.1 (1-3); Alkaline Phosphatase 111 U/L (35-149); Anion Gap 2 mmol/L (2-16); Blood Urea Nitrogen 24 mg/dL (6-24); CO2 Carbon Dioxide 38 mmol/L (22-32); Calcium 9.6 mg/dL (8.6-10.3); Chloride 102 mmol/L (101-111); Creatine Kinase 48 U/L (10-223); Creatinine, Serum 0.56 mg/dL (0.51-0.95); Globulin 3.2 g/dL (2-4); Glucose 95 mg/dL (70-100); Lipase < 10 U/L (11.0-82.0); Magnesium 2.1 mg/dL (1.9-2.7); Potassium 4.6 mmol/L (3.5-5.0); Sodium 142 mmol/L (135-145); Total Protein 6.6 g/dL (6.4-8.9); eGFR CKD-EPI 87.2 (>60)
[2023-05-08 15:22] LABS: Venous Bicarbonate HCO3 32.2 mmol/L (24-28)
[2023-05-08] MEDS ORDERED: Iodixanol (CONTRAST) 320 MG/ML 100 ML SDV IV ONE (15:43)
[2023-05-08 16:14] LABS: TSH Ultra Thyroid Stim Horm 3.47 mcIU/mL (0.34-5.60)
[2023-05-08 16:21] LABS: Urine Appearance Cloudy; Urine Bilirubin Negative (Negative); Urine Blood Negative (Negative); Urine Color Yellow; Urine Glucose Negative (Negative); Urine Ketones Negative (Negative); Urine Nitrite Negative (Negative); Urine Protein Negative (Negative); Urine Specific Gravity 1.018 (1.002-1.030); Urine Urobilinogen Negative (Negative)
[2023-05-08] MEDS ORDERED: Furosemide 20 mg/2 ml IV VIAL IV SLOW PU ONE (16:45)
[2023-05-08] MEDS ORDERED: Enoxaparin 40 MG/0.4 ML SYR SUBCUT ONE (17:10)
[2023-05-09 05:56] LABS: ABS Basophils 0.1 10^3/uL (0.0-0.1); ABS Eosinophils 0.4 10^3/uL (0.0-0.5); ABS Lymphocytes 0.8 10^3/uL (1.0-4.8); ABS Monocytes 0.8 10^3/uL (0.0-0.9); ABS Neutrophils 5.4 10^3/uL (1.5-7.6); Eosinophil % 5.4 %; Hematocrit 34.3 % (35-45); Hemoglobin 11.6 g/dL (11.5-14.3); Lymphocyte % 10.3 %; Mean Corpuscular Hemoglobin 32.4 pg (27-33); Mean Corpuscular Hgb Conc 33.9 g/dL (31-36); Mean Corpuscular Volume 95.7 fL (80-97); Mean Platelet Volume 8.4 fL (7.5-11.2); Platelet Count 181 10^3/uL (150-450); Red Blood Count 3.59 10^6/uL (3.63-4.92); Red Cell Distribution Width 16.7 % (12-17); White Blood Count 7.4 10^3/uL (3.8-11.8)
[2023-05-09 06:53] LABS: Calcium 8.3 mg/dL (8.6-10.3); Potassium 4.2 mmol/L (3.5-5.0)
[2023-05-09 06:59] LABS: Creatinine, Serum 0.55 mg/dL (0.51-0.95); eGFR CKD-EPI 87.6 (>60)
[2023-05-09 07:14] LABS: High Sensitivity Troponin 1 Hr 32 pg/mL (<15)
[2023-05-09 07:30] LABS: Folate 14.57 ng/mL (5.90-24.80)
[2023-05-09] MEDS ORDERED: NF: IPRATROPIUM BR (NF)0.03% NASAL 1 SPRAY BTL BOTH NARES SCH (09:00)
[2023-05-09] MEDS ORDERED: Polyethylene Glycol 3350 17 GM PACKET PO PRN (09:00)
[2023-05-09] MEDS: Enoxaparin 40 MG/0.4 ML SYR SUBCUT SCH ×2 (09:35→22:07)
[2023-05-09] MEDS: Lidocaine PATCH 5% PATCH TRANSDERM SCH (09:35)
[2023-05-09] MEDS: Cholecalciferol (VIT D3) 1,000 unit TAB PO SCH (09:36)
[2023-05-09 16:21] LABS: High Sensitivity Troponin 1 Hr 31 pg/mL (<15)
[2023-05-10 05:42] LABS: ABS Eosinophils 0.4 10^3/uL (0.0-0.5); ABS Monocytes 0.8 10^3/uL (0.0-0.9); ABS Neutrophils 3.9 10^3/uL (1.5-7.6); Eosinophil % 6.2 %; Hematocrit 32.8 % (35-45); Hemoglobin 11.2 g/dL (11.5-14.3); Lymphocyte % 16.9 %; Mean Corpuscular Hemoglobin 32.9 pg (27-33); Mean Corpuscular Hgb Conc 34.3 g/dL (31-36); Mean Corpuscular Volume 95.8 fL (80-97); Mean Platelet Volume 8.6 fL (7.5-11.2); Platelet Count 191 10^3/uL (150-450); Red Blood Count 3.42 10^6/uL (3.63-4.92); Red Cell Distribution Width 16.6 % (12-17); White Blood Count 6.2 10^3/uL (3.8-11.8)
[2023-05-10 06:03] LABS: Albumin 3.2 g/dL (3.2-5.2); Albumin/Globulin Ratio 1.2 (1-3); Calcium 8.9 mg/dL (8.6-10.3); Creatinine, Serum 0.63 mg/dL (0.51-0.95); Globulin 2.7 g/dL (2-4); Potassium 3.9 mmol/L (3.5-5.0); Total Bilirubin 0.5 mg/dL (0.2-1.0); Total Protein 5.9 g/dL (6.4-8.9); eGFR CKD-EPI 84.7 (>60)
[2023-05-10 06:08] LABS: PCO2 Arterial 61 mmHg (35-45); PO2 Arterial 101 mmHg (80-100)
[2023-05-10] MEDS: Cholecalciferol (VIT D3) 1,000 unit TAB PO SCH (07:27)
[2023-05-10] MEDS: Lidocaine PATCH 5% PATCH TRANSDERM SCH (07:27)
[2023-05-10] MEDS: Enoxaparin 40 MG/0.4 ML SYR SUBCUT SCH ×2 (07:27→20:33)
[2023-05-11 06:01] LABS: ABS Basophils 0.1 10^3/uL (0.0-0.1); ABS Eosinophils 0.3 10^3/uL (0.0-0.5); ABS Monocytes 0.7 10^3/uL (0.0-0.9); ABS Neutrophils 5.8 10^3/uL (1.5-7.6); Eosinophil % 4.3 %; Hematocrit 34.4 % (35-45); Hemoglobin 11.5 g/dL (11.5-14.3); Lymphocyte % 12.3 %; Mean Corpuscular Hemoglobin 32.2 pg (27-33); Mean Corpuscular Hgb Conc 33.6 g/dL (31-36); Mean Platelet Volume 8.3 fL (7.5-11.2); Platelet Count 209 10^3/uL (150-450); Red Blood Count 3.58 10^6/uL (3.63-4.92); Red Cell Distribution Width 16.4 % (12-17); White Blood Count 7.9 10^3/uL (3.8-11.8)
[2023-05-11 06:18] LABS: Calcium 9.3 mg/dL (8.6-10.3); Creatinine, Serum 0.56 mg/dL (0.51-0.95); Potassium 4.4 mmol/L (3.5-5.0); eGFR CKD-EPI 87.2 (>60)
[2023-05-11] MEDS: Cholecalciferol (VIT D3) 1,000 unit TAB PO SCH ×2 (09:04→10:37)
[2023-05-11] MEDS: Enoxaparin 40 MG/0.4 ML SYR SUBCUT SCH ×2 (09:23→20:29)
[2023-05-11] MEDS: Lidocaine PATCH 5% PATCH TRANSDERM SCH (09:23)
[2023-05-12 06:44] LABS: ABS Eosinophils 0.5 10^3/uL (0.0-0.5); ABS Lymphocytes 1.1 10^3/uL (1.0-4.8); ABS Monocytes 0.7 10^3/uL (0.0-0.9); ABS Neutrophils 3.3 10^3/uL (1.5-7.6); Eosinophil % 8.2 %; Hematocrit 33.2 % (35-45); Hemoglobin 11.2 g/dL (11.5-14.3); Mean Corpuscular Hemoglobin 32.6 pg (27-33); Mean Corpuscular Hgb Conc 33.8 g/dL (31-36); Mean Corpuscular Volume 96.6 fL (80-97); Mean Platelet Volume 8.9 fL (7.5-11.2); Platelet Count 198 10^3/uL (150-450); Red Blood Count 3.44 10^6/uL (3.63-4.92); Red Cell Distribution Width 16.3 % (12-17); White Blood Count 5.5 10^3/uL (3.8-11.8)
[2023-05-12 06:49] LABS: Creatinine, Serum 0.65 mg/dL (0.51-0.95); Potassium 3.8 mmol/L (3.5-5.0); eGFR CKD-EPI 84.1 (>60)
[2023-05-12] MEDS: Cholecalciferol (VIT D3) 1,000 unit TAB PO SCH (09:51)
[2023-05-12] MEDS: Enoxaparin 40 MG/0.4 ML SYR SUBCUT SCH ×2 (09:52→20:33)
[2023-05-12] MEDS: Lidocaine PATCH 5% PATCH TRANSDERM SCH (09:52)
[2023-05-13 06:36] LABS: ABS Basophils 0.1 10^3/uL (0.0-0.1); ABS Eosinophils 0.5 10^3/uL (0.0-0.5); ABS Monocytes 0.8 10^3/uL (0.0-0.9); ABS Neutrophils 4.6 10^3/uL (1.5-7.6); ABS Nucleated RBC 0.01 10^3/ul; Eosinophil % 7.3 %; Hematocrit 33.9 % (35-45); Hemoglobin 11.4 g/dL (11.5-14.3); Lymphocyte % 14.4 %; Mean Corpuscular Hemoglobin 32.4 pg (27-33); Mean Corpuscular Hgb Conc 33.7 g/dL (31-36); Mean Corpuscular Volume 96.3 fL (80-97); Mean Platelet Volume 8.4 fL (7.5-11.2); Nucleated Red Blood Cells % 0.1 /100 WBC (0.0-0.4); Platelet Count 204 10^3/uL (150-450); Red Blood Count 3.52 10^6/uL (3.63-4.92); Red Cell Distribution Width 16.1 % (12-17)
[2023-05-13 06:58] LABS: Calcium 8.7 mg/dL (8.6-10.3); Creatinine, Serum 0.56 mg/dL (0.51-0.95); Magnesium 1.9 mg/dL (1.9-2.7); eGFR CKD-EPI 87.2 (>60)
[2023-05-13] MEDS: Cholecalciferol (VIT D3) 1,000 unit TAB PO SCH (08:33)
[2023-05-13] MEDS: Enoxaparin 40 MG/0.4 ML SYR SUBCUT SCH ×2 (08:39→21:44)
[2023-05-13] MEDS: Lidocaine PATCH 5% PATCH TRANSDERM SCH (08:49)
[2023-05-14 06:42] LABS: ABS Basophils 0.1 10^3/uL (0.0-0.1); ABS Eosinophils 0.4 10^3/uL (0.0-0.5); ABS Monocytes 0.7 10^3/uL (0.0-0.9); ABS Neutrophils 4.4 10^3/uL (1.5-7.6); ABS Nucleated RBC 0.01 10^3/ul; Eosinophil % 5.9 %; Hematocrit 34.9 % (35-45); Hemoglobin 11.7 g/dL (11.5-14.3); Lymphocyte % 15.6 %; Mean Corpuscular Hemoglobin 32.4 pg (27-33); Mean Corpuscular Hgb Conc 33.4 g/dL (31-36); Mean Corpuscular Volume 96.9 fL (80-97); Mean Platelet Volume 8.2 fL (7.5-11.2); Nucleated Red Blood Cells % 0.1 /100 WBC (0.0-0.4); Platelet Count 224 10^3/uL (150-450); White Blood Count 6.6 10^3/uL (3.8-11.8)
[2023-05-14 06:58] LABS: Calcium 8.6 mg/dL (8.6-10.3); Creatinine, Serum 0.55 mg/dL (0.51-0.95); Potassium 3.9 mmol/L (3.5-5.0); eGFR CKD-EPI 87.6 (>60)
[2023-05-14] MEDS: Enoxaparin 40 MG/0.4 ML SYR SUBCUT SCH (09:10)
[2023-05-14] MEDS: Cholecalciferol (VIT D3) 1,000 unit TAB PO SCH (09:11)
[2023-05-14] MEDS: Lidocaine PATCH 5% PATCH TRANSDERM SCH (09:11)
[2023-05-15 05:59] VITALS: BP 146/71
[2023-05-15 06:40] LABS: ABS Eosinophils 0.5 10^3/uL (0.0-0.5); ABS Lymphocytes 0.9 10^3/uL (1.0-4.8); ABS Monocytes 0.8 10^3/uL (0.0-0.9); ABS Neutrophils 5.5 10^3/uL (1.5-7.6); Eosinophil % 5.9 %; Hematocrit 34.6 % (35-45); Hemoglobin 11.6 g/dL (11.5-14.3); Lymphocyte % 11.9 %; Mean Corpuscular Hemoglobin 32.2 pg (27-33); Mean Corpuscular Hgb Conc 33.4 g/dL (31-36); Mean Corpuscular Volume 96.5 fL (80-97); Mean Platelet Volume 8.2 fL (7.5-11.2); Platelet Count 225 10^3/uL (150-450); Red Blood Count 3.59 10^6/uL (3.63-4.92); Red Cell Distribution Width 15.9 % (12-17); White Blood Count 7.7 10^3/uL (3.8-11.8)
[2023-05-15 06:56] LABS: Calcium 8.8 mg/dL (8.6-10.3); Creatinine, Serum 0.6 mg/dL (0.51-0.95); eGFR CKD-EPI 85.7 (>60)
[2023-05-15] MEDS: Cholecalciferol (VIT D3) 1,000 unit TAB PO SCH (08:50)
[2023-05-15] MEDS: Lidocaine PATCH 5% PATCH TRANSDERM SCH (08:52)
== END 2023-05-15 09:15 | DRG 189 ==
LOC: ED 12:51 → EDHOLD 12:51 → SUATTDRO 18:48 → MEDTELE 23:52 → SUATTDRO 05-10 13:43
PROVIDERS: ADMIT Hospitalist; ATTEND Internal Medicine